=== PATIENT | female | born 1970 | race Caucasian/White ===

== ENCOUNTER → 2016-07-16 | Outpatient (CLI) | payer OTHER ==
--- NOTE | 2016-07-17 09:39 | MM ---
Reason for exam: screening (asymptomatic). Last mammogram was performed 1 year and 6 months ago. History: Family history of breast cancer in mother. Benign US RT VAD breast biopsy of the right breast, June 18, 2011. 2 benign excisional biopsies of the left breast. Took hormonal contraceptives for 1 year. Physical Findings: A clinical breast exam by your physician is recommended on an annual basis and results should be correlated with mammographic findings. MG Screening Mammo w CAD Bilateral CC and MLO view(s) were taken. Prior study comparison: December 31, 2014, bilateral MG screening mammo w CAD. There are scattered fibroglandular densities. Previous mammotome biopsy within the right breast. Asymmetric breast tissue, right stable upper outer quadrant posterior depth. There is chronic nodularity in the right breast at clip and in the left breast. There is no discrete abnormality. ASSESSMENT: Benign, BI-RAD 2 RECOMMENDATION: Routine screening mammogram of both breasts in 1 year.
== END | disposition home or self-care (01) ==
LOC: RADMAMWWP 07:07
PROVIDERS: ATTEND Family Medicine
DX: Z12.31 Encounter for screening mammogram for malignant neoplasm of breast (principal)

== ENCOUNTER 2016-09-05 17:32 | Emergency (ER) | payer OTHER ==
[2016-09-05 18:01] VITALS: BP 146/94; PULSE 82; RESP 18; TEMP 97.9
--- NOTE | 2016-09-05 18:38 | XR ---
EXAMINATION TYPE: XR foot limited bilateral DATE OF EXAM: 09/05/2016 CLINICAL HISTORY: pain TECHNIQUE: Frontal, lateral images of the right foot are obtained. COMPARISON: None. FINDINGS: There is no acute fracture/dislocation evident. The joint spaces appear within normal small its. The overlying soft tissue appears unremarkable. IMPRESSION: There is no acute fracture or dislocation. ICD 10 NO FRACTURE, INITIAL EVALUATION EXAMINATION TYPE: XR foot limited bilateral DATE OF EXAM: 09/05/2016 CLINICAL HISTORY: pain TECHNIQUE: Frontal, lateral images of the left foot are obtained. COMPARISON: None. FINDINGS: There is no acute fracture/dislocation evident. The joint spaces appear within normal small its. The overlying soft tissue appears unremarkable.
--- NOTE | 2016-09-05 19:10 | ED ---
Extremity Problem HPI - General Chief complaint: Extremity Problem,Nontraumatic Stated complaint: RT FOOT PAIN Time Seen by Provider: 09/05/16 17:51 Source: patient, RN notes reviewed, old records reviewed Mode of arrival: ambulatory Limitations: physical limitation - History of Present Illness Initial comments: This is a 45 year old female with right foot pain after stepping on a bus step and feeling her muscles in her foot tear for one week. PAtient reports she has heel spurs. She saw her PCP for this foot pain, he prescribed steroids but she does not want to take them because her blood sugar becomes elevated. PAtient states she has full sensation and range of motion. Patient states that she can bear weight on her foot, it is painful in her instep. - Related Data Home Medications Medication Instructions Recorded Confirmed Aspirin EC [Ecotrin Low Dose] 81 mg PO DAILY 12/22/15 09/05/16 Atenolol [Tenormin] 50 mg PO DAILY 09/05/16 09/05/16 Benazepril HCl [Lotensin] 40 mg PO DAILY 09/05/16 09/05/16 Furosemide [Lasix] 40 mg PO DAILY 09/05/16 09/05/16 Insulin Aspart Protam & Aspart 60 unit SQ HS 09/05/16 09/05/16 [NovoLOG MIX 70-30 Flexpen] Insulin Aspart Protam & Aspart 100 unit SQ QAM 09/05/16 09/05/16 [NovoLOG MIX 70-30 Flexpen] Previous Rx's Medication Instructions Recorded Ibuprofen [Motrin] 600 mg PO Q8HR PRN #20 tab 09/05/16 Allergies Allergy/AdvReac Type Severity Reaction Status Date / Time Penicillins AdvReac Nausea & Verified 09/05/16 18:15 Vomiting Review of Systems ROS Statement: Those systems with pertinent positive or pertinent negative responses have been documented in the HPI. ROS Other: All systems not noted in ROS Statement are negative. Past Medical History Past Medical History: Diabetes Mellitus, Hypertension History of Any Multi-Drug Resistant Organisms: None Reported Past Surgical History: Section Additional Past Surgical History / Comment(s): vascular surgery on right leg two years ago. Past Psychological History: No Psychological Hx Reported Smoking Status: Never smoker Past Alcohol Use History: None Reported Past Drug Use History: None Reported General Exam - General Exam Comments Initial Comments: WEll appearing 45 year old female, no distress. Limitations: physical limitation General appearance: alert, in no apparent distress Head exam: Present: atraumatic, normocephalic, normal inspection Eye exam: Present: normal appearance, PERRL, EOMI. Absent: scleral icterus, conjunctival injection, periorbital swelling ENT exam: Present: normal exam, mucous membranes moist Neck exam: Present: normal inspection. Absent: tenderness, meningismus, lymphadenopathy Respiratory exam: Present: normal lung sounds bilaterally. Absent: respiratory distress, wheezes, rales, rhonchi, stridor Cardiovascular Exam: Present: regular rate, normal rhythm, normal heart sounds. Absent: systolic murmur, diastolic murmur, rubs, gallop, clicks GI/Abdominal exam: Present: soft, normal bowel sounds. Absent: distended, tenderness, guarding, rebound, rigid Extremities exam: Present: normal inspection, full ROM, normal capillary refill , other (tenderness over right foot instep. Full range of motion in toes and ankle. ). Absent: tenderness, pedal edema, joint swelling, calf tenderness Back exam: Present: normal inspection Neurological exam: Present: alert, oriented X3, CN II-XII intact Psychiatric exam: Present: normal affect, normal mood Skin exam: Present: warm, dry, intact, normal color. Absent: rash Course Vital Signs 09/05/16 17:53 Temperature 97.9 F Pulse Rate 82 Respiratory 18 Rate Blood Pressure 146/94 O2 Sat by Pulse 98 Oximetry Medical Decision Making - Medical Decision Making This is a 45 year old female with right foot pain after stepping on a bus step and feeling her muscles in her foot tear for one week. PAtient reports she has heel spurs. She saw her PCP for this foot pain, he prescribed steroids but she does not want to take them because her blood sugar becomes elevated. PAtient states she has full sensation and range of motion. Xray are negative. Given an ZACARIAS wrap and written for crutches. Discussed follow up with orthopedic. Patient understands treatment planand haylie comply. - Radiology Data Radiology results: report reviewed Xray negative for acute process. Disposition Clinical Impression: Right foot sprain Disposition: HOME SELF-CARE Condition: Good Instructions: Foot Sprain (ED) Additional Instructions: Patient advised to follow-up with orthopedic physician as well as her primary care doctor in numerical tool [employer]. Return to the emergency department if any alarming signs or symptoms occur. Weighs wear the Zacarias wrap. Take anti-inflammatory medications prescribed. Rest, ice, and elevate the extremity. Prescriptions: Ibuprofen [Motrin] 600 mg PO Q8HR PRN #20 tab PRN Reason: Pain Referrals: Jorge Patel MD [Primary Care Provider] - 1-2 days Jamie Allison MD [STAFF PHYSICIAN] - 1-2 days Time of Disposition: 19:08
== END 2016-09-05 19:17 | disposition home or self-care (01) ==
LOC: EC 17:32
DX: S93.601A Unspecified sprain of right foot, initial encounter (principal); E11.9 Type 2 diabetes mellitus without complications; I10 Essential (primary) hypertension; Z79.82 Long term (current) use of aspirin; Z79.4 Long term (current) use of insulin; Z79.899 Other long term (current) drug therapy; X58.XXXA Exposure to other specified factors, initial encounter
CPT/HCPCS: 99283

== ENCOUNTER → 2017-08-24 | Outpatient (CLI) | payer MEDICAID ==
[2017-08-24 14:41] LABS: HGB 12.2 gm/dL (11.4-16.0); Hypochromasia Marked; MCH 23.4 pg (25.0-35.0); MCHC 31.3 g/dL (31.0-37.0); MCV 74.7 fL (80.0-100.0); Mean Platelet Volume 6.6; Microcytosis Slight; Platelet Count 351 k/uL (150-450); RBC 5.22 m/uL (3.80-5.40); RDW 15.1 % (11.5-15.5); WBC 11.1 k/uL (3.8-10.6)
[2017-08-24 16:27] LABS: ALT 31 U/L (9-52); AST 19 U/L (14-36); Alkaline Phosphatase 98 U/L (38-126); Anion Gap 14 mmol/L; Blood Urea Nitrogen 24 mg/dL (7-17); Calcium 9.5 mg/dL (8.4-10.2); Carbon Dioxide 29 mmol/L (22-30); Chloride 101 mmol/L (98-107); Glucose 143 mg/dL (74-99); Potassium 4.7 mmol/L (3.5-5.1); Sodium 144 mmol/L (137-145); Total Bilirubin 0.4 mg/dL (0.2-1.3); Total Protein 7.2 g/dL (6.3-8.2)
[2017-08-24 16:41] LABS: T4, Free (Free Thyroxine) 1.19 ng/dL (0.78-2.19)
[2017-08-26 09:38] LABS: Vitamin D 25 Hydroxy 22.7 ng/mL (30.0-100.0)
== END ==
LOC: LABMAIN 12:48
PROVIDERS: ATTEND Internal Medicine
DX: E66.9 Obesity, unspecified (principal); R53.83 Other fatigue; E11.9 Type 2 diabetes mellitus without complications
CPT/HCPCS: 36415; 80053; 82306; 82607; 83036; 84439; 84443; 84481; 85027

== ENCOUNTER 2017-09-29 10:03 | Emergency (ER) | payer MEDICAID, OTHER ==
[2017-09-29 10:12] VITALS: RESP 18
--- NOTE | 2017-09-29 10:24 | ED ---
Back Pain HPI - General Chief Complaint: Back Pain/Injury Stated Complaint: Low back pain-[facility] Time Seen by Provider: 09/29/17 10:24 Source: patient Limitations: no limitations - History of Present Illness Initial Comments: Patient presents with low back pain. 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 Patient states she is pain across the entire low back, states improves with being still, worsened by twisting certain directions. Pain is an aching and stiffness. Patient denies fevers, chills, nausea, vomiting, previous back surgeries, numbness, weakness, difficulty urinating, bowel incontinence, saddle anesthesia. Patient states she's had a similar injury in the past that she states was a lumbar sprain. MD Complaint: back pain - Related Data Home Medications Medication Instructions Recorded Confirmed Aspirin EC [Ecotrin Low Dose] 81 mg PO DAILY 12/22/15 09/29/17 Atenolol [Tenormin] 50 mg PO DAILY 09/05/16 09/29/17 Furosemide [Lasix] 40 mg PO DAILY 09/05/16 09/29/17 Insulin Aspart Protam & Aspart 60 unit SQ HS 09/05/16 09/29/17 [NovoLOG MIX 70-30 Flexpen] Insulin Aspart Protam & Aspart 100 unit SQ QAM 09/05/16 09/29/17 [NovoLOG MIX 70-30 Flexpen] Previous Rx's Medication Instructions Recorded Ibuprofen [Motrin] 600 mg PO Q8HR PRN #20 tab 09/05/16 Ibuprofen [Motrin] 600 mg PO Q6HR PRN #30 tab 09/29/17 predniSONE 40 mg PO DAILY 5 Days #10 tab 09/29/17 Allergies Allergy/AdvReac Type Severity Reaction Status Date / Time Penicillins AdvReac Nausea & Verified 09/29/17 10:12 Vomiting Review of Systems ROS Statement: Those systems with pertinent positive or pertinent negative responses have been documented in the HPI. ROS Other: All systems not noted in ROS Statement are negative. Constitutional: Denies: fever, chills, weakness, weight change, night sweats Eyes: Denies: vision change ENT: Denies: congestion Respiratory: Denies: dyspnea Cardiovascular: Denies: chest pain Endocrine: Denies: fatigue Gastrointestinal: Denies: nausea, vomiting, diarrhea, constipation Genitourinary: Denies: urgency, dysuria, frequency, hematuria Musculoskeletal: Reports: back pain. Denies: joint swelling, arthralgia, myalgia Skin: Denies: rash Neurological: Denies: weakness, numbness, paresthesias Past Medical History Past Medical History: Diabetes Mellitus, Hypertension History of Any Multi-Drug Resistant Organisms: None Reported Past Surgical History: Section Additional Past Surgical History / Comment(s): vascular surgery on right leg two years ago. Past Psychological History: No Psychological Hx Reported Smoking Status: Never smoker Past Alcohol Use History: None Reported Past Drug Use History: None Reported General Exam - General Exam Comments Initial Comments: Sitting up in chair. No acute distress at rest. Conversing normally. Calm, pleasant. Limitations: no limitations General appearance: alert, in no apparent distress Head exam: Present: atraumatic, normocephalic Eye exam: Present: normal appearance, PERRL, EOMI ENT exam: Present: normal exam, mucous membranes moist Neck exam: Present: normal inspection. Absent: tenderness Respiratory exam: Present: normal lung sounds bilaterally. Absent: respiratory distress, wheezes, rales Cardiovascular Exam: Present: regular rate, normal rhythm GI/Abdominal exam: Present: soft. Absent: distended, tenderness Extremities exam: Present: normal inspection, full ROM, normal capillary refill , other. Absent: tenderness, joint swelling Back exam: Present: tenderness, paraspinal tenderness, other (Tenderness palpation bilateral sacroiliac joints, as well as bilateral lumbar paravertebral muscles. Pain with range of motion of the lumbar spine. No midline tenderness. Straight leg raise negative bilaterally. Patient able to stand up and walk, transfer from chair to bed without difficulty. Ambulatory in the ER without difficulty.). Absent: muscle spasm, vertebral tenderness Neurological exam: Present: alert, oriented X3, other (Lower extremities neurovascularly intact.) Psychiatric exam: Present: normal affect, normal mood Skin exam: Present: warm, dry, intact, normal color. Absent: cyanosis Course Vital Signs 09/29/17 10:08 Temperature 98.0 F Pulse Rate 83 Respiratory 18 Rate Blood Pressure 166/96 O2 Sat by Pulse 95 Oximetry Medical Decision Making - Medical Decision Making No signs of cauda equina per exam or history. Patient afebrile. No obvious fractures or other bony abnormalities on lumbar x-ray. Patient to follow up with primary care physician. Discuss possible physical therapy, possible MRI if symptoms persist, possible referral to spinal surgeon. Patient to discuss with her primary care physician. Return to ER if new or worsening symptoms. Prescription steroids given. Return to ER for new or worsening symptoms. Patient understands and agrees. Disposition Clinical Impression: Low back pain Disposition: HOME SELF-CARE Condition: Good Instructions: Acute Low Back Pain (ED) Additional Instructions: Follow-up with your primary care physician, discuss physical therapy and MRI of lumbar spine. Return to ER if new or worsening symptoms. Prescriptions: Ibuprofen [Motrin] 600 mg PO Q6HR PRN #30 tab PRN Reason: Pain predniSONE 40 mg PO DAILY 5 Days #10 tab Is patient prescribed a controlled substance at d/c from ED?: No Referrals: Joshua Dexter MD [Primary Care Provider] - 1-2 days
--- NOTE | 2017-09-29 11:19 | XR ---
EXAMINATION TYPE: XR lumbar spine 2 or 3V DATE OF EXAM: 09/29/2017 COMPARISON: 12/23/2015 HISTORY: 46-year-old female with pain after lifting injury TECHNIQUE: 3 views FINDINGS: 5 lumbar type vertebral bodies. Facet arthropathy lower lumbar spine. Very mild endplate spondylosis is noted in the lumbar spine. Vertebral body heights are preserved and alignment are maintained. Disc spaces are also relatively maintained. IMPRESSION: Facet arthropathy lower lumbar spine. Very mild scattered endplate spondylosis. Disc spaces are relat ively maintained. No vertebral compression collapse or malalignment.
[2017-09-29 12:11] VITALS: BP 155/86; PULSE 81; TEMP 97.8
== END 2017-09-29 12:10 | disposition home or self-care (01) ==
LOC: EC 10:03
DX: M54.5 Low back pain (principal); E11.9 Type 2 diabetes mellitus without complications; I10 Essential (primary) hypertension; Z79.4 Long term (current) use of insulin; Z79.82 Long term (current) use of aspirin; Z79.899 Other long term (current) drug therapy; Z88.0 Allergy status to penicillin; X58.XXXA Exposure to other specified factors, initial encounter; Y93.F9 Activity, other caregiving; Y99.0 Civilian activity done for income or pay
CPT/HCPCS: 72100; 99283

== ENCOUNTER → 2018-07-12 | Outpatient (CLI) | payer MEDICAID ==
[2018-07-12 17:01] LABS: T4, Free (Free Thyroxine) 1.7 ng/dL (0.80-1.80)
== END ==
LOC: LABWHC1 09:18
PROVIDERS: ATTEND Internal Medicine
DX: E03.9 Hypothyroidism, unspecified (principal); E11.9 Type 2 diabetes mellitus without complications
CPT/HCPCS: 36415; 82947; 83036; 84439; 84443; 84481

== ENCOUNTER → 2018-07-12 | Outpatient (CLI) | payer MEDICAID ==
--- NOTE | 2018-07-14 10:22 | MM ---
Reason for exam: screening (asymptomatic). Last mammogram was performed 2 years ago. History: Patient history of other cancer. Family history of breast cancer in mother at age 70. Benign US RT VAD breast biopsy of the right breast, June 18, 2011. 2 benign excisional biopsies of the left breast. Took hormonal contraceptives for 1 year. Physical Findings: A clinical breast exam by your physician is recommended on an annual basis and results should be correlated with mammographic findings. MG 3D Screening Mammo W/Cad Bilateral CC, MLO, and XCCL view(s) were taken. Prior study comparison: July 16, 2016, bilateral MG screening mammo w CAD. December 31, 2014, bilateral MG screening mammo w CAD. There are scattered fibroglandular densities. No significant changes when compared with prior studies. ASSESSMENT: Benign, BI-RAD 2 RECOMMENDATION: Routine screening mammogram of both breasts in 1 year.
== END ==
LOC: RADMAMWWP 11:41
PROVIDERS: ATTEND Internal Medicine Geriatric Medicine
DX: Z12.31 Encounter for screening mammogram for malignant neoplasm of breast (principal)
CPT/HCPCS: 77063; 77067

== ENCOUNTER → 2018-07-16 | Outpatient (CLI) | payer MEDICAID ==
--- NOTE | 2018-07-16 08:33 | US ---
EXAMINATION TYPE: US thyroid st tissue head/neck DATE OF EXAM: 07/16/2018 COMPARISON: US 06/18/2011, NM 08/14/2011 CLINICAL HISTORY: R22.0 Thyroid Swelling. GLAND SIZE: Right Lobe: 7.9 x 2.6 x 3.1 cm Overall Parenchyma: heterogenous Left Lobe: 6.2 x 2.3 x 2.4 cm Overall Parenchyma: heterogeneous Isthmus Thickness: 1.7 cm NODULES RIGHT: # of nodules measured on right: 3 1. 2.8 X 1.4 x 2.4 cm hypoechoic solid nodule at the upper pole with well-defined margins; . This nodule is wider than tall and shows intranodular vascularity. Prior size: No previous 2. 3.4 X 2.2 x 3.3 cm isoechoic solid nodule at the upper pole with well-defined margins; . This no dule is wider than tall and shows intranodular vascularity. Prior size:No previous 3. 2.0 X 1.2 x 1.3 cm isoechoic solid nodule which appears inferior to the thyroid with well-defin ed margins; . This nodule is wider than tall and shows intranodular vascularity. Prior size:No previous LEFT: # of nodules measured on left: 2 1. 2.9 X 2.3 x 2.6 cm hypoechoic solid nodule at the lower pole with well-defined margins; . This nodule is wider than tall and shows intranodular vascularity. Prior size: No previous 2. 1.4 X 1.3 x 1.5 cm isoechoic solid nodule at the mid pole with well-defined margins; . This nodu le is wider than tall and shows intranodular vascularity. Prior size: No previous ISTHMUS: # of nodules measured in the isthmus: 0 Bilateral neck scanned, no evidence of lymphadenopathy. Bilateral enlarged, multinodular heterogeneous thyroid glands. IMPRESSION: Findings of a multinodular goiter. Discrete interval thyroid nodules are now seen in comparison to e prior of 2011. On the right there is a hypoechoic hypervascular 2.8 cm nodule and 3.4 cm mid pole h ypervascular nodule. Fine-needle aspiration could be considered or nuclear medicine thyroid scan to e valuate for cold nodule.
== END | disposition home or self-care (01) ==
LOC: RADUSWWP 06:44
PROVIDERS: ATTEND Internal Medicine
DX: E04.2 Nontoxic multinodular goiter (principal)
CPT/HCPCS: 76536

== ENCOUNTER → 2018-07-19 | Outpatient (CLI) | payer MEDICAID ==
[2018-07-19 16:44] LABS: T4, Free (Free Thyroxine) 1.6 ng/dL (0.80-1.80)
== END | disposition home or self-care (01) ==
LOC: LABWHC1 09:37
PROVIDERS: ATTEND Internal Medicine Endocrinology, Diabetes & Metabolism
DX: E11.65 Type 2 diabetes mellitus with hyperglycemia (principal)
CPT/HCPCS: 36415; 84439; 84443; 84445; 84480

== ENCOUNTER → 2018-08-13 | Outpatient (CLI) | payer MEDICAID ==
--- NOTE | 2018-08-14 22:05 | NM ---
EXAMINATION TYPE: NM thyroid image w uptake DATE OF EXAM: 08/14/2018 COMPARISON: Prior nuclear medicine thyroid scan July 20, 2011. Prior thyroid ultrasound July 16 HISTORY: Nontoxic multinodular goiter TECHNIQUE: Thyroid iodine uptake is calculated and images performed after the oral administration of 321 uCi 1-123 Capsule. FINDINGS: There is persistent heterogeneous distribution of activity throughout the gland similar to 2012 study. There is diminished uptake lower pole of both thyroid lobes which may correspond to large r nodule seen on ultrasound. There are persistent hot nodules right thyroid upper pole level and warm nodule left thyroid upper pole level. The 4 hour iodine uptake is calculated at 10% (normal range 8- 14%). The 24-hour iodine uptake is calculated at 20% (normal range 15-35%). IMPRESSION: Abnormal study without significant change from prior. Overall normal uptake remains prese nt. Cold nodules noted lower pole level bilaterally.
== END ==
LOC: RADNMMAIN 08:05
PROVIDERS: ATTEND Internal Medicine Endocrinology, Diabetes & Metabolism
DX: E04.2 Nontoxic multinodular goiter (principal)
CPT/HCPCS: 78014; A9516

== ENCOUNTER → 2018-10-13 | Outpatient (CLI) | payer MEDICAID ==
[2018-10-13 09:17] LABS: African American GFR (CKD) >90 (>60 ml/min/1.73 sqM); Blood Urea Nitrogen 18 mg/dL (7-17); Potassium 4.3 mmol/L (3.5-5.1)
== END | disposition home or self-care (01) ==
LOC: LABPAT 07:58
PROVIDERS: ATTEND Surgery
DX: Z01.810 Encounter for preprocedural cardiovascular examination (principal); Z01.812 Encounter for preprocedural laboratory examination; I10 Essential (primary) hypertension; E04.2 Nontoxic multinodular goiter
CPT/HCPCS: 36415; 82565; 84132; 84520; 93005

== ENCOUNTER 2018-10-16 07:13 | Day surgery (SDC) | payer MEDICAID ==
[~2018-10-16 07:13] MED LIST: HEPARIN SODIUM,PORCINE 5,000 UNIT/ML 1 ML VIAL SQ ONE; HYDROmorphone 0.5 MG/0.5 ML SYRINGE IVP PRN; LIDOCAINE 1% 20 ML VIAL (10MG/ML) FOR IV START INTRADERMA PRN; ONDANSETRON 4 MG/2 ML VIAL IVP ONE; ONDANSETRON 4 MG/2 ML VIAL IVP PRN; Pre Op ABX Message 1 EACH MISC MISCELLANE ONE; SCOPOLAMINE 1.5MG/72HR PATCH TRANSDERM ONE
[2018-10-16] MEDS ORDERED: ceFAZolin IN SWFI 2 GM/20 ML SYRINGE IVP ONE (08:21)
[2018-10-16] MEDS ORDERED: ceFAZolin 3 GM in SODIUM CHLORIDE 0.9% 100 ML IVPB ONE (08:30)
[2018-10-16] MEDS: LACTATED RINGERS 1,000 ML IV SCH (08:32)
[2018-10-16 08:36] LABS: Glucose,Whole Blood 187 mg/dL (75-99)
--- NOTE | 2018-10-16 08:48 | P.GSHP ---
History of Present Illness H&P Date: 10/16/18 Chief Complaint: Thyroid nodules This a 47-year-old female who has complaints of pressure in her neck. Patient underwent ultrasound found to have multiple enlarged thyroid nodules. Patient presents today for total thyroidectomy for multinodular goiter. Patient is aware the risks surgery including hypocalcemia, parathyroid gland injury, vocal hoarseness/paresis, recurrent laryngeal nerve injury, hematoma. Past Medical History Past Medical History: Diabetes Mellitus, Hypertension, Thyroid Disorder Additional Past Medical History / Comment(s): NODULES ON THYROID, PRESSING ON THROAT. VARICOSE VEINS. EDEMA ANKLES. History of Any Multi-Drug Resistant Organisms: None Reported Past Surgical History: Breast Surgery, Section Additional Past Surgical History / Comment(s): Vascular Laser Surgery on Rt leg. John wrist ganglion cysts. Breast bx. Past Anesthesia/Blood Transfusion Reactions: No Reported Reaction Smoking Status: Former smoker - Past Family History Mother Family Medical History: Cancer, Deep Vein Thrombosis (DVT) Additional Family Medical History / Comment(s): BREAST CA Brother(s) Family Medical History: Cancer, Deep Vein Thrombosis (DVT) Additional Family Medical History / Comment(s): CA TUMOR OFF PITUITARY GLAND Medications and Allergies Home Medications Medication Instructions Recorded Confirmed Type Aspirin EC [Ecotrin Low Dose] 81 mg PO DAILY 12/22/15 10/08/18 History Atenolol [Tenormin] 50 mg PO DAILY 09/05/16 10/16/18 History Furosemide [Lasix] 40 mg PO DAILY 09/05/16 10/16/18 History Benazepril HCl [Lotensin] 40 mg PO DAILY 10/08/18 10/16/18 History Insulin NPL/Insulin Lispro 105 unit SQ [id number] 10/08/18 10/16/18 History [humaLOG MIX 75-25 VIAL] Insulin NPL/Insulin Lispro 105 unit SQ HS 10/08/18 10/16/18 History [humaLOG MIX 75-25 VIAL] Potassium Chloride ER [K-Dur 10] 10 meq PO DAILY 10/08/18 10/16/18 History metFORMIN HCL [Glucophage] 500 mg PO BID 10/08/18 10/16/18 History Allergies Allergy/AdvReac Type Severity Reaction Status Date / Time Penicillins AdvReac Nausea & Verified 10/08/18 11:55 Vomiting Surgical - Exam Vital Signs Temp Pulse Resp BP Pulse Ox 98.4 F 87 18 184/88 97 10/16/18 08:33 10/16/18 08:33 10/16/18 08:33 10/16/18 08:33 10/16/18 08:33 - General well developed, well nourished, no distress - Eyes PERRL - ENT normal pinna, normal nares, normal mucosa - Neck Prominent thyroid - Respiratory normal expansion - Cardiovascular Rhythm: regular - Abdomen Abdomen: soft, non tender Results - Labs Abnormal Lab Results - Last 24 Hours (Table) 10/16/18 Range/Units 08:24 POC Glucose (mg/dL) 187 H (75-99) mg/dL Assessment and Plan Assessment: Multinodular goiter with a large thyroid nodule. We'll perform total thyroidectomy.
[2018-10-16] MEDS ORDERED: MIDAZOLAM (PF) 2 MG/2 ML VIAL IVP ONE (08:58)
[2018-10-16] MEDS ORDERED: MIDAZOLAM 2 MG/2 ML VIAL ONE (09:01)
[2018-10-16] MEDS ORDERED: PROPOFOL 10 MG/ML 20 ML VIAL IV ONE (09:01)
[2018-10-16] MEDS ORDERED: fentaNYL (PF) 50 MCG/ML 2 ML AMP ONE (09:01)
[2018-10-16] MEDS ORDERED: DEXTROSE 50% SYRINGE 50 ML IVP ONE (09:01)
[2018-10-16] MEDS ORDERED: SUCCINYLCHOLINE CHLORIDE VIAL 200 MG/10 ML VIAL IV ONE (09:01)
[2018-10-16] MEDS ORDERED: LIDOCAINE 1% INJ 10MG/ML (20 ML MDV) ONE (09:01)
[2018-10-16] MEDS ORDERED: PHENYLEPHRINE-0.9% NACL SYG 1 MG/10 ML SYRINGE ONE (09:01)
[2018-10-16] MEDS ORDERED: HYDROmorphone (PF) 1 MG/ML ONE (09:01)
[2018-10-16] MEDS ORDERED: LACTATED RINGERS 1,000 ML IV ONE ×3 (10:12→11:56)
[2018-10-16 10:50] LABS: Glucose,Whole Blood 87 mg/dL (75-99)
[2018-10-16 11:21] LABS: Glucose,Whole Blood 119 mg/dL (75-99)
[2018-10-16] MEDS ORDERED: HYDROmorphone 0.5 MG/0.5 ML SYRINGE IVP PRN (11:56)
[2018-10-16] MEDS ORDERED: ONDANSETRON 4 MG/2 ML VIAL IVP PRN (11:56)
[2018-10-16] MEDS ORDERED: HYDROcodone/APAP 5-325MG 1 EACH TAB PO PRN (11:56)
[2018-10-16] MEDS ORDERED: NALOXONE 0.4 MG/ML 1 ML VIAL IV PRN (11:56)
[2018-10-16] MEDS ORDERED: ONDANSETRON 4 MG/2 ML VIAL IVP ONE (12:10)
--- NOTE | 2018-10-16 12:10 | P.OP ---
Date of Procedure: 10/16/18 Preoperative Diagnosis: Multinodular goiter Postoperative Diagnosis: Multinodular goiter Enlarged left cervical lymph node Procedure(s) Performed: Total thyroidectomy Lymph node excision Anesthesia: KIAN Surgeon: Ruddy Bolaños Estimated Blood Loss (ml): 50 Pathology: other (Thyroid, lymph node) Condition: stable Disposition: PACU Description of Procedure: Patient's placed on the operative table in the supine position. She received general anesthesia. She was then placed in the beachchair position. Her neck was extended. Her neck and chest were prepped and draped in usual sterile fashion. A standard Lni incision was made on the neck. Using left cautery the subcutaneous fat and platysma was divided. The strap muscles were divided in the midline. The scalp retractors placed a wound and then the thyroid gland was exposed. Using some blunt dissection the thyroid gland was further exposed. The left thyroid gland was quite large. The right gland was slightly smaller than the left with both glands were enlarged with multiple nodules. This point the left limb was dissected first. The thyroid dissection started inferiorly at the inferior pole. Using a right angle dissector the inferior thyroid vessels were suture-ligated with 2-0 silk suture. The vessels were divided and then the gland was rotated medially. Using the Harmonic scissors several small veins were divided. The superior thyroid vessels were then dissected. Using the right angle grasper the superior thyroid vessels were suture-ligated with 2-0 silk ties. And then the thyroid gland was further rotated medially. Using meticulous dissection the thyroid gland was further dissected using the Harmonic scissors and care was taken to identify and preserve the recurrent laryngeal nerve in the tracheoesophageal groove. The patient appeared to have an enlarged lymph node attached to the left thyroid gland this was removed with the left thyroid gland. The middle thyroid vessels were ligated with 2-0 silk ties. And then using the Harmonic scissors the thyroid gland was removed from the trachea. After this was done the right thyroid gland was dissected the summer fashion. The inferior pole vessels were ligated with 2-0 silk ties. The gland was then rotated medially and then using Harmonic scissors the thyroid was dissected along its capsule. The superior thyroid vessels were ligated with 2-0 silk ties and then the thyroid gland was rotated medially. Using meticulous dissection the recurrent laryngeal nerve was visualized and then the middle thyroid vessels were ligated with 2-0 silk ties. The thyroid was then removed from the trachea using the Harmonic scissors. The specimen was sent to pathology. The left upper pole thyroid was tagged with a silk suture. The wounds refuses. There is no bleeding seen. The wound was irrigated. The thyroid gland was inspected there is no evidence of any parathyroid gland on the thyroid. The left upper and left lower and right lower parathyroid glands were visualized during the dissection. A MERY drain was placed and brought through separate stab incision the strap muscles were reapproximated midline using 2-0 Vicryl suture. The platysmas platysma was was closed using 3-0 Vicryl suture. Skin was closed interrupted 3-0 Monocryl suture. Dermabond was applied. Patient top procedure well and was sent to recovery room stable condition.
[2018-10-16 12:18] LABS: Glucose,Whole Blood 115 mg/dL (75-99)
[2018-10-16] MEDS ORDERED: diphenhydrAMINE 50 MG/ML 1 ML VIAL IVP ONE (12:20)
[2018-10-16] MEDS ORDERED: SODIUM CHLORIDE 0.9% 1,000 ML IV ONE (12:39)
[2018-10-16] MEDS ORDERED: hydrALAZINE HCL 20 MG/ML 1 ML VIAL IVP ONE (12:56)
[2018-10-16] MEDS ORDERED: SCOPOLAMINE 1.5MG/72HR PATCH TRANSDERM ONE (13:35)
[2018-10-16] MEDS ORDERED: PROMETHAZINE INJ 25 MG/ML 1 ML VIAL IVPB ONE (13:35)
[2018-10-16 17:00] LABS: Glucose,Whole Blood 139 mg/dL (75-99)
[2018-10-16] MEDS: KETOROLAC 30 MG/ML 1 ML VIAL IVP SCH ×4 (17:06→19:56)
[2018-10-16] MEDS: ACETAMINOPHEN TAB 325 MG TAB PO PRN (17:20)
[2018-10-16 17:25] VITALS: BMI 47.7
[2018-10-16] MEDS: FAMOTIDINE 20 MG TAB PO SCH (19:56)
[2018-10-16 20:31] LABS: Glucose,Whole Blood 250 mg/dL (75-99)
[2018-10-16] MEDS ORDERED: INSULN ASP PRT/INSULIN ASPART 100 UNIT/ML 10 ML VIAL SQ SCH (21:00)
[2018-10-17] MEDS: KETOROLAC 30 MG/ML 1 ML VIAL IVP SCH ×3 (00:09→14:40)
[2018-10-17] MEDS: ACETAMINOPHEN TAB 325 MG TAB PO PRN (03:23)
[2018-10-17 06:49] LABS: Glucose,Whole Blood 97 mg/dL (75-99)
[2018-10-17] MEDS ORDERED: INSULN ASP PRT/INSULIN ASPART 100 UNIT/ML 10 ML VIAL SQ SCH (07:30)
[2018-10-17 09:00] LABS: Glucose,Whole Blood 163 mg/dL (75-99)
[2018-10-17] MEDS ORDERED: ENOXAPARIN 40 MG/0.4 ML SYRINGE SQ SCH (09:00)
[2018-10-17] MEDS ORDERED: ASPIRIN 81 MG PO SCH (09:00)
[2018-10-17] MEDS ORDERED: ATENOLOL 50 MG TAB PO SCH (09:00)
[2018-10-17] MEDS: FAMOTIDINE 20 MG TAB PO SCH (09:11)
[2018-10-17] MEDS: LACTATED RINGERS 1,000 ML IV SCH (09:18)
[2018-10-17 11:00] LABS: Glucose,Whole Blood 175 mg/dL (75-99)
[2018-10-17 12:45] VITALS: BP 131/87; PULSE 74; RESP 16; TEMP 98.1
[2018-10-17 13:04] LABS: Glucose,Whole Blood 200 mg/dL (75-99)
--- NOTE | 2018-10-17 13:14 | P.PN ---
Subjective No overnight events, patient is status post total thyroidectomy serum calcium within normal limits. Blood sugars are well controlled. Patient still has a MERY drain post thyroidectomy. Constitutional: Denied any fatigue denied any fever. Cardio vascular: denied any chest pain, palpitations Gastrointestinal denied any nausea vomiting Pulmonary: Denied any shortness of breath cough Neurologic denied any new focal deficits All inpatient medications were reviewed and appropriate changes in these medications as dictated in the interval history and assessment and plan. Objective - Vital Signs Vital signs: Vital Signs Temp 98.1 F 10/17/18 12:44 Pulse 74 10/17/18 12:44 Resp 16 10/17/18 12:44 BP 131/87 10/17/18 12:44 Pulse Ox 95 10/17/18 12:44 Intake & Output 10/16/18 10/17/18 10/17/18 18:59 06:59 18:59 Intake Total 1750 495 Output Total 100 Balance 1650 495 Intake: IV 1750 Intake, IV Titration 495 Amount Sodium Chloride 0.9% 1, 495 000 ml @ 0 mls/hr IV .[employer] [facility] Rx#:[id number] Output: Estimated Blood Loss 100 Other: Voiding Method Toilet Toilet Toilet # Voids 2 - Exam PHYSICAL EXAMINATION: GENERAL: The patient is drowsy as she is just coming out of anesthesia, not in any acute distress. Obese HEENT: Pupils are round and equally reacting to light. EOMI. No scleral icterus. No conjunctival pallor. Normocephalic, atraumatic. No pharyngeal erythema. Thyroidectomy scar present, MERY drain in place CARDIOVASCULAR: S1 and S2 present. No murmurs, rubs, or gallops. PULMONARY: Chest is clear to auscultation, no wheezing or crackles. ABDOMEN: Soft, nontender, nondistended, normoactive bowel sounds. No palpable organomegaly. MUSCULOSKELETAL: No joint swelling or deformity. EXTREMITIES: No cyanosis, clubbing, or pedal edema. NEUROLOGICAL: Gross neurological examination did not reveal any focal deficits. SKIN: No rashes. - Labs Labs: Abnormal Lab Results - Last 24 Hours (Table) 10/16/18 10/16/18 10/16/18 Range/Units 15:34 16:58 19:04 POC Glucose (mg/dL) 139 H (75-99) mg/dL Calcium 8.2 L 8.1 L (8.4-10.2) mg/dL 10/16/18 10/16/18 10/17/18 Range/Units 20:25 23:35 07:33 POC Glucose (mg/dL) 250 H (75-99) mg/dL Calcium 7.8 L 7.8 L (8.4-10.2) mg/dL 10/17/18 10/17/18 10/17/18 Range/Units 08:47 10:59 13:02 POC Glucose (mg/dL) 163 H 175 H 200 H (75-99) mg/dL Calcium (8.4-10.2) mg/dL Assessment and Plan Plan: -Type 2 diabetes mellitus insulin management patient was resumed on her 70/30 blood sugars are well controlled -Hypertension: Monitor blood pressure hold MARIA FERNANDA inhibitor to prevent perioperative hypotension continue with atenolol -Total thyroidectomy postop management for thyroidectomy as per primary service, monitor calcium -Obesity patient may benefit from sleep study as an outpatient -DVT prophylaxis as per primary service
--- NOTE | 2018-10-17 13:59 | P.DS ---
Providers Expected date of discharge: 10/17/18 Attending physician: Ruddy Bolaños Consults: 10/16/18 11:56 Consult Physician Routine Consulting Provider: Humberto Rainey Consult Reason/Comments: Medical management Do you want consulting provider notified?: Yes Primary care physician: Isacc Lewis Hospital Course: 47-year-old female who underwent total thyroidectomy with Dr. Bolaños on 10/16/2018. Patient is doing well postoperatively without any immediate complications. patient's pain is tolerable. Vital signs are stable. She has been afebrile. Patient's voice normal without hoarseness. calcium 7.8 postoperatively. patient is deemed stable for discharge home today per Dr. Bolaños. Please see EMR for further hospital course details. Discharge Diagnosis 1. multinodular goiter, status post total thyroidectomy Nurse practitioner note has been reviewed by physician. Signing provider agrees with the documented findings, assessment, and plan of care. Plan - Discharge Summary Discharge Rx Participant: Yes New Discharge Prescriptions: New Hydrocodone/Acetaminophen [[place] 5-325] 1 tab PO Q4HR PRN 3 Days #18 tab PRN Reason: Pain Calcium Carb-Vit D 500Mg-200Un [Oscal 500+D] 1 each PO DAILY #30 tablet No Action Aspirin EC [Ecotrin Low Dose] 81 mg PO DAILY Furosemide [Lasix] 40 mg PO DAILY Atenolol [Tenormin] 50 mg PO DAILY Benazepril HCl [Lotensin] 40 mg PO DAILY Insulin NPL/Insulin Lispro [humaLOG MIX 75-25 VIAL] 105 unit SQ HS Insulin NPL/Insulin Lispro [humaLOG MIX 75-25 VIAL] 105 unit SQ AC-BRKFST metFORMIN HCL [Glucophage] 500 mg PO BID Potassium Chloride ER [K-Dur 10] 10 meq PO DAILY Discharge Medication List Aspirin EC [Ecotrin Low Dose] 81 mg PO DAILY 12/22/15 [History] Atenolol [Tenormin] 50 mg PO DAILY 09/05/16 [History] Furosemide [Lasix] 40 mg PO DAILY 09/05/16 [History] Benazepril HCl [Lotensin] 40 mg PO DAILY 10/08/18 [History] Insulin NPL/Insulin Lispro [humaLOG MIX 75-25 VIAL] 105 unit SQ AC-BRKFST 10/08/18 [History] Insulin NPL/Insulin Lispro [humaLOG MIX 75-25 VIAL] 105 unit SQ HS 10/08/18 [History] Potassium Chloride ER [K-Dur 10] 10 meq PO DAILY 10/08/18 [History] metFORMIN HCL [Glucophage] 500 mg PO BID 10/08/18 [History] Calcium Carb-Vit D 500Mg-200Un [Oscal 500+D] 1 each PO DAILY #30 tablet 10/17/18 [Rx] Hydrocodone/Acetaminophen [[place] 5-325] 1 tab PO Q4HR PRN 3 Days #18 tab 10/17/18 [Rx] Follow up Appointment(s)/Referral(s): Ruddy Bolaños MD [STAFF PHYSICIAN] - 1 Week Activity/Diet/Wound Care/Special Instructions: No driving while taking [place] No lifting over 10 pounds You may shower. No soaking or tub baths Very light activity until you are reevaluated at your follow up appointment with your surgeon Discharge Disposition: HOME SELF-CARE
== END 2018-10-17 16:26 | disposition home or self-care (01) ==
LOC: OR 07:13 → 3NMEDONC 11:56 → OR 10-17 16:26
PROVIDERS: ATTEND Surgery
DX: C73 Malignant neoplasm of thyroid gland (principal); E06.3 Autoimmune thyroiditis; R59.0 Localized enlarged lymph nodes; I10 Essential (primary) hypertension; R60.0 Localized edema; E11.9 Type 2 diabetes mellitus without complications; E66.9 Obesity, unspecified; Z68.42 Body mass index [BMI] 45.0-49.9, adult; Z87.891 Personal history of nicotine dependence; Z79.82 Long term (current) use of aspirin; Z79.4 Long term (current) use of insulin; Z79.899 Other long term (current) drug therapy; Z88.0 Allergy status to penicillin; Z80.3 Family history of malignant neoplasm of breast; Z80.8 Family history of malignant neoplasm of other organs or systems
CPT/HCPCS: 60240; 88307; 82310 ×2; 84703; J2250 ×2; J0330; J0360; J1200; J1644; J2550; J0690; J2405; J2001; J1650; J3010; J1885 ×2; J1170 ×2; J2370; J2704

== ENCOUNTER 2018-10-20 13:21 | Emergency (ER) | payer MEDICAID ==
[2018-10-20 13:29] VITALS: TEMP 97.6
[2018-10-20 14:16] LABS: Glucose,Whole Blood 243 mg/dL (75-99)
--- NOTE | 2018-10-20 14:36 | ED ---
General Adult HPI - General Chief complaint: Neuro Symptoms/Deficit Stated complaint: Post op issues, Recheck Time Seen by Provider: 10/20/18 13:47 Source: patient Mode of arrival: ambulatory Limitations: no limitations - History of Present Illness Initial comments: Patient is a 47-year-old female with past medical history of diabetes, hypertension, presenting to the emergency room with complaints of numbness in her lips and fingertips 1 day. Patient states she recently had a thyroidectomy on 10/16/2018, without complications. She states she noticed the lip numbness yesterday evening and has progressed as well as in the fingertips. Patient sta kati her surgeon told her if she has any fever, chills, and/or numbness to go to the ER. Patient states she is also had diarrhea since the surgery. Patient denies fever, chills, abdominal pain, chest pain, shortness of breath. Patient has follow-up with her surgeon on . No other complaints at this time. - Related Data Home Medications Medication Instructions Recorded Confirmed Aspirin EC [Ecotrin Low Dose] 81 mg PO DAILY 12/22/15 10/20/18 Atenolol [Tenormin] 50 mg PO DAILY 09/05/16 10/20/18 Furosemide [Lasix] 40 mg PO DAILY 09/05/16 10/20/18 Benazepril HCl [Lotensin] 40 mg PO DAILY 10/08/18 10/20/18 Insulin NPL/Insulin Lispro 105 unit SQ BID 10/08/18 10/20/18 [humaLOG MIX 75-25 VIAL] Potassium Chloride ER [K-Dur 10] 10 meq PO DAILY 10/08/18 10/20/18 metFORMIN HCL [Glucophage] 500 mg PO BID 10/08/18 10/20/18 Calcium Carb-Vit D 500Mg-200Un 1 tab PO DAILY 10/20/18 10/20/18 [Oscal 500+D] Previous Rx's Medication Instructions Recorded Hydrocodone/Acetaminophen [[place] 1 tab PO Q4HR PRN 3 Days #18 tab 10/17/18 5-325] Allergies Allergy/AdvReac Type Severity Reaction Status Date / Time Penicillins AdvReac Nausea & Verified 10/20/18 13:39 Vomiting Review of Systems ROS Statement: Those systems with pertinent positive or pertinent negative responses have been documented in the HPI. ROS Other: All systems not noted in ROS Statement are negative. Past Medical History Past Medical History: Diabetes Mellitus, Hypertension, Thyroid Disorder Additional Past Medical History / Comment(s): NODULES ON THYROID, PRESSING ON THROAT. VARICOSE VEINS. EDEMA ANKLES. History of Any Multi-Drug Resistant Organisms: None Reported Past Surgical History: Breast Surgery, Section Additional Past Surgical History / Comment(s): Vascular Laser Surgery on Rt leg. John wrist ganglion cysts. Breast bx., thyroidectomy Past Anesthesia/Blood Transfusion Reactions: No Reported Reaction Past Psychological History: No Psychological Hx Reported Smoking Status: Former smoker - Past Family History Mother Family Medical History: Cancer, Deep Vein Thrombosis (DVT) Additional Family Medical History / Comment(s): BREAST CA Brother(s) Family Medical History: Cancer, Deep Vein Thrombosis (DVT) Additional Family Medical History / Comment(s): CA TUMOR OFF PITUITARY GLAND General Exam - General Exam Comments Initial Comments: GENERAL: Well-appearing, well-nourished and in no acute distress. HEAD: Atraumatic, normocephalic. EYES: Pupils equal round and reactive to light, extraocular movements intact, sclera anicteric, conjunctiva are normal. ENT: TMs normal, nares patent, oropharynx clear without exudates. Moist mucous membranes. NECK: Normal range of motion, supple without lymphadenopathy or JVD. Healing incision noted, anterior aspect, without signs of infection. LUNGS: Breath sounds clear to auscultation bilaterally and equal. No wheezes rales or rhonchi. HEART: Regular rate and rhythm without murmurs, rubs or gallops. ABDOMEN: Soft, nontender, normoactive bowel sounds. No guarding, no rebound. No masses appreciated. : Deferred EXTREMITIES: Normal range of motion, no pitting or edema. No clubbing or cyanosis. Sensation equal, bilateral in upper and lower extremities. NEUROLOGICAL: Cranial nerves II through XII grossly intact. Normal speech, normal gait. PSYCH: Normal mood, normal affect. SKIN: Warm, Dry, normal turgor, no rashes or lesions noted. Limitations: no limitations Expanded Sensory exam: Upper Extremity Light Touch: Normal, Lower Extremity Light Touch: Normal Motor strength exam: RUE: 5, LUE: 5, RLE: 5, LLE: 5 Course Vital Signs 10/20/18 10/20/18 13:24 16:42 Temperature 97.6 F Pulse Rate 80 74 Respiratory 18 16 Rate Blood Pressure 147/93 130/91 O2 Sat by Pulse 94 L 96 Oximetry Medical Decision Making - Medical Decision Making Patient is a 47-year-old female with complaints of lip and fingertip numbness x 1 day. Patient had thyroidectomy 4 days ago without complications. Patient states she noticed the lip numbness began yesterday evening and has progressed through today. Patient is also complaining of diarrhea since the surgery. Patient is afebrile and denies any abdominal pain. CMP showed calcium level is 6.0. CBC and UA are within normal limits. Patient was given 1 g of calcium g luconate IV and patient's symptoms improved. Case was discussed with Dr. Elliott. Dr. Elliott discussed with Dr. Bolaños who recommended increasing her daily calcium supplement to 3 times a day and is okay to be discharged. Patient is in agreement with this plan. Patient will be discharged home and will follow up with surgeon on . Return parameters were discussed with the patient she verbalized understanding. - Lab Data Result diagrams: 10/20/18 14:16 10/20/18 14:16 Lab Results 10/20/18 10/20/18 10/20/18 Range/Units 14:15 14:16 14:16 WBC 9.9 (3.8-10.6) k/uL RBC 4.92 (3.80-5.40) m/uL Hgb 11.7 (11.4-16.0) gm/dL Hct 36.4 (34.0-46.0) % MCV 74.0 L (80.0-100.0) fL MCH 23.9 L (25.0-35.0) pg MCHC 32.3 (31.0-37.0) g/dL RDW 14.6 (11.5-15.5) % Plt Count 323 (150-450) k/uL Neutrophils % 81 % Lymphocytes % 11 % Monocytes % 5 % Eosinophils % 2 % Basophils % 0 % Neutrophils # 8.0 H (1.3-7.7) k/uL Lymphocytes # 1.0 (1.0-4.8) k/uL Monocytes # 0.5 (0-1.0) k/uL Eosinophils # 0.2 (0-0.7) k/uL Basophils # 0.0 (0-0.2) k/uL Hypochromasia Slight Microcytosis Slight Sodium 140 (137-145) mmol/L Potassium 4.3 (3.5-5.1) mmol/L Chloride 99 (98-107) mmol/L Carbon Dioxide 30 (22-30) mmol/L Anion Gap 11 mmol/L BUN 12 (7-17) mg/dL Creatinine 0.60 (0.52-1.04) mg/dL Est GFR (CKD-EPI)AfAm >90 (>60 ml/min/1.73 sqM) Est GFR (CKD-EPI)NonAf >90 (>60 ml/min/1.73 sqM) Glucose 259 H (74-99) mg/dL POC Glucose (mg/dL) 243 H (75-99) mg/dL POC Glu Cribber ID [place] Calcium 6.0 L* (8.4-10.2) mg/dL Total Bilirubin 0.5 (0.2-1.3) mg/dL AST 17 (14-36) U/L ALT 21 (9-52) U/L Alkaline Phosphatase 104 (38-126) U/L Total Protein 6.6 (6.3-8.2) g/dL Albumin 3.6 (3.5-5.0) g/dL Urine Color Urine Appearance (Clear) Urine pH (5.0-8.0) Ur Specific [place] (1.001-1.035) Urine Protein (Negative) Urine Glucose (UA) (Negative) Urine Ketones (Negative) Urine Blood (Negative) Urine Nitrite (Negative) Urine Bilirubin (Negative) Urine Urobilinogen (<2.0) mg/dL Ur Leukocyte Esterase (Negative) Urine RBC (0-5) /hpf Urine WBC (0-5) /hpf Ur Squamous Epith Cells (0-4) /hpf Urine Bacteria (None) /hpf Hyaline Casts (0-2) /lpf Urine Mucus (None) /hpf 10/20/18 Range/Units 14:16 WBC (3.8-10.6) k/uL RBC (3.80-5.40) m/uL Hgb (11.4-16.0) gm/dL Hct (34.0-46.0) % MCV (80.0-100.0) fL MCH (25.0-35.0) pg MCHC (31.0-37.0) g/dL RDW (11.5-15.5) % Plt Count (150-450) k/uL Neutrophils % % Lymphocytes % % Monocytes % % Eosinophils % % Basophils % % Neutrophils # (1.3-7.7) k/uL Lymphocytes # (1.0-4.8) k/uL Monocytes # (0-1.0) k/uL Eosinophils # (0-0.7) k/uL Basophils # (0-0.2) k/uL Hypochromasia Microcytosis Sodium (137-145) mmol/L Potassium (3.5-5.1) mmol/L Chloride (98-107) mmol/L Carbon Dioxide (22-30) mmol/L Anion Gap mmol/L BUN (7-17) mg/dL Creatinine (0.52-1.04) mg/dL Est GFR (CKD-EPI)AfAm (>60 ml/min/1.73 sqM) Est GFR (CKD-EPI)NonAf (>60 ml/min/1.73 sqM) Glucose (74-99) mg/dL POC Glucose (mg/dL) (75-99) mg/dL POC Glu Cribber ID Calcium (8.4-10.2) mg/dL Total Bilirubin (0.2-1.3) mg/dL AST (14-36) U/L ALT (9-52) U/L Alkaline Phosphatase (38-126) U/L Total Protein (6.3-8.2) g/dL Albumin (3.5-5.0) g/dL Urine Color Yellow Urine Appearance Clear (Clear) Urine pH 5.5 (5.0-8.0) Ur Specific [place] 1.015 (1.001-1.035) Urine Protein Negative (Negative) Urine Glucose (UA) Negative (Negative) Urine Ketones Negative (Negative) Urine Blood Trace H (Negative) Urine Nitrite Negative (Negative) Urine Bilirubin Negative (Negative) Urine Urobilinogen <2.0 (<2.0) mg/dL Ur Leukocyte Esterase Negative (Negative) Urine RBC 1 (0-5) /hpf Urine WBC 1 (0-5) /hpf Ur Squamous Epith Cells 2 (0-4) /hpf Urine Bacteria Occasional H (None) /hpf Hyaline Casts 1 (0-2) /lpf Urine Mucus Rare H (None) /hpf Disposition Clinical Impression: Hypocalcemia Disposition: HOME SELF-CARE Condition: Stable Instructions (If sedation given, give patient instructions): Hypocalcemia (ED) Additional Instructions: Please return to the Emergency Department if symptoms worsen or any other concerns. Increase calcium supplement to 3 times a day. Follow-up with surgeon on as discussed. Is patient prescribed a controlled substance at d/c from ED?: No Referrals: Joshua Dexter MD [Primary Care Provider] - 1-2 days
[2018-10-20 14:40] LABS: ALT 21 U/L (9-52); AST 17 U/L (14-36); African American GFR (CKD) >90 (>60 ml/min/1.73 sqM); Albumin 3.6 g/dL (3.5-5.0); Alkaline Phosphatase 104 U/L (38-126); Anion Gap 11 mmol/L; Basophils % (A) 0 %; Blood Urea Nitrogen 12 mg/dL (7-17); Carbon Dioxide 30 mmol/L (22-30); Chloride 99 mmol/L (98-107); Eosinophils # (A) 0.2 k/uL (0-0.7); Eosinophils % (A) 2 %; Glucose 259 mg/dL (74-99); HCT 36.4 % (34.0-46.0); HGB 11.7 gm/dL (11.4-16.0); Hypochromasia Slight; Lymphocytes % (A) 11 %; MCH 23.9 pg (25.0-35.0); MCHC 32.3 g/dL (31.0-37.0); Microcytosis Slight; Monocytes # (A) 0.5 k/uL (0-1.0); Monocytes % (A) 5 %; Neutrophils % (A) 81 %; Platelet Count 323 k/uL (150-450); Potassium 4.3 mmol/L (3.5-5.1); RBC 4.92 m/uL (3.80-5.40); RDW 14.6 % (11.5-15.5); Sodium 140 mmol/L (137-145); Total Bilirubin 0.5 mg/dL (0.2-1.3); Total Protein 6.6 g/dL (6.3-8.2); WBC 9.9 k/uL (3.8-10.6)
[2018-10-20 14:43] LABS: Appearance,Urine Clear (Clear); Bacteria,Urine Occasional /hpf; Bilirubin,Urine Negative (Negative); Blood,Urine Trace (Negative); Color,Urine Yellow; Glucose,Urine (UA) Negative (Negative); Hyaline Casts,Urine 1 /lpf (0-2); Ketones,Urine Negative (Negative); Leukocyte Esterase,Urine Negative (Negative); Mucus,Urine Rare /hpf; Nitrite,Urine Negative (Negative); PH, Urine 5.5 (5.0-8.0); Protein,Urine Negative (Negative); RBC,Urine 1 /hpf (0-5); Specific Gravity,Urine 1.015 (1.001-1.035); Squamous Epithelial Cell,Urine 2 /hpf (0-4); Urobilinogen,Urine <2.0 mg/dL (<2.0)
[2018-10-20] MEDS ORDERED: CALCIUM GLUCONATE 1 GM in SODIUM CHLORIDE 0.9% 100 ML IVPB ONE (15:03)
[2018-10-20 16:43] VITALS: BP 130/91; PULSE 74; RESP 16
== END 2018-10-20 16:43 | disposition home or self-care (01) ==
LOC: EC 13:21
DX: E83.51 Hypocalcemia (principal); R19.7 Diarrhea, unspecified; E11.9 Type 2 diabetes mellitus without complications; I10 Essential (primary) hypertension; Z86.39 Personal history of other endocrine, nutritional and metabolic disease; Z90.89 Acquired absence of other organs; Z79.82 Long term (current) use of aspirin; Z79.4 Long term (current) use of insulin; Z79.899 Other long term (current) drug therapy; Z88.0 Allergy status to penicillin
CPT/HCPCS: 36415; 80053; 85025; 81001; 99283; 96365; J0610

== ENCOUNTER → 2018-11-04 | Outpatient (CLI) | payer MEDICAID ==
[2018-11-04 20:45] LABS: Follicle Stimulating Hormone 13.6 mIU/mL
[2018-11-04 21:21] LABS: African American GFR (CKD) 101.8 (60.0-200.0); Albumin 4.2 g/dL (3.80-4.90); Albumin/Globulin Ratio 1.75 (1.60-3.17); Anion Gap 8.6 mmol/L (4.00-12.00); BUN/Creat Ratio 23.75 Ratio (12.00-20.00); Calcium 8.6 mg/dL (8.7-10.3); Carbon Dioxide 30.4 mmol/L (21.6-31.8); Globulin 2.4 g/dL (1.6-3.3); Non-African American GFR(CKD) 87.8 (60.0-200.0); Potassium 4.3 mmol/L (3.5-5.5); Total Bilirubin 0.3 mg/dL (0.3-1.2); Total Protein 6.6 g/dL (6.2-8.2)
== END | disposition home or self-care (01) ==
LOC: LABWHC1 12:12
PROVIDERS: ATTEND Internal Medicine Endocrinology, Diabetes & Metabolism
DX: C73 Malignant neoplasm of thyroid gland (principal)
CPT/HCPCS: 36415; 80053; 83001; 83970; 84432; 84443; 86800

== ENCOUNTER → 2019-05-04 | Outpatient (CLI) | payer BC ==
[2019-05-04 17:34] LABS: African American GFR (CKD) 87.6 (60.0-200.0); Albumin 4.1 g/dL (3.80-4.90); Albumin/Globulin Ratio 1.58 (1.60-3.17); Anion Gap 8.6 mmol/L (4.00-12.00); BUN/Creat Ratio 21.11 Ratio (12.00-20.00); Calcium 8.7 mg/dL (8.7-10.3); Carbon Dioxide 27.4 mmol/L (21.6-31.8); Globulin 2.6 g/dL (1.6-3.3); Non-African American GFR(CKD) 75.6 (60.0-200.0); Potassium 4.5 mmol/L (3.5-5.5); Total Bilirubin 0.6 mg/dL (0.3-1.2); Total Protein 6.7 g/dL (6.2-8.2)
[2019-05-04 17:42] LABS: Follicle Stimulating Hormone 9.7 mIU/mL
== END | disposition home or self-care (01) ==
LOC: LABWHC1 10:38
PROVIDERS: ATTEND Internal Medicine Endocrinology, Diabetes & Metabolism
DX: C73 Malignant neoplasm of thyroid gland (principal)
CPT/HCPCS: 36415; 80053; 83001; 83970; 84432; 84443; 86800

== ENCOUNTER → 2019-05-22 | Outpatient (CLI) | payer BC ==
--- NOTE | 2019-05-22 15:40 | US ---
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 Thyroidectomy October 2018 GLAND SIZE: Right Residual Lobe: 4.5 x 1.4 x 1.6 cm Overall Parenchyma: heterogenous Left Residual Lobe: 3.2 x 1.7 x 1.4 cm Overall Parenchyma: heterogeneous Isthmus Thickness: 1.2 cm Patient states she had thyroidectomy October 2018 due to right lobe CA. Bilateral neck scanned, no evidence of lymphadenopathy. IMPRESSION: Residual thyroid tissue is seen bilaterally appearing diffusely heterogenous. Correlate w ith thyroglobulin level and consider nuclear medicine thyroid uptake scan in this patient with prior carcinoma to exclude recurrence.
== END | disposition home or self-care (01) ==
LOC: RADUSWWP 14:46
PROVIDERS: ATTEND Internal Medicine Endocrinology, Diabetes & Metabolism
DX: C73 Malignant neoplasm of thyroid gland (principal); E05.20 Thyrotoxicosis with toxic multinodular goiter without thyrotoxic crisis or storm
CPT/HCPCS: 76536

== ENCOUNTER → 2019-09-25 | Outpatient (CLI) | payer BC ==
[2019-09-25 18:32] LABS: Follicle Stimulating Hormone 10.2 mIU/mL
== END | disposition home or self-care (01) ==
LOC: LABWHC1 12:55
PROVIDERS: ATTEND Internal Medicine Endocrinology, Diabetes & Metabolism
DX: C73 Malignant neoplasm of thyroid gland (principal)
CPT/HCPCS: 36415; 83001; 84432; 84443; 86800

== ENCOUNTER → 2019-11-09 | Outpatient (CLI) | payer BC | LOC: LABWHC1 08:53 | PROVIDERS: ATTEND Internal Medicine Endocrinology, Diabetes & Metabolism | DX: Z53.9 Procedure and treatment not carried out, unspecified reason (principal) ==

== ENCOUNTER → 2019-11-12 | Outpatient (CLI) | payer BC | END | disposition home or self-care (01) | LOC: LABWHC1 08:06 | PROVIDERS: ATTEND Internal Medicine Endocrinology, Diabetes & Metabolism | DX: C73 Malignant neoplasm of thyroid gland (principal) | CPT/HCPCS: 36415; 84432; 84443; 86800 ==

== ENCOUNTER → 2019-12-21 | Outpatient (CLI) | payer BC | END | disposition home or self-care (01) | LOC: LABWHC1 12:42 | PROVIDERS: ATTEND Internal Medicine Endocrinology, Diabetes & Metabolism | DX: C73 Malignant neoplasm of thyroid gland (principal) | CPT/HCPCS: 36415; 84432; 84443; 86800 ==

== ENCOUNTER → 2020-02-19 | Outpatient (CLI) | payer BC ==
[2020-02-19 14:24] VITALS: BMI 49.1
== END | disposition home or self-care (01) ==
LOC: DBWHC3 13:49
PROVIDERS: ATTEND Family Medicine
DX: E11.65 Type 2 diabetes mellitus with hyperglycemia (principal)
CPT/HCPCS: G0108 ×2

== ENCOUNTER → 2020-04-04 | Outpatient (CLI) | payer BC | END | disposition home or self-care (01) | LOC: LABWHC1 11:50 | PROVIDERS: ATTEND Internal Medicine Endocrinology, Diabetes & Metabolism | DX: C73 Malignant neoplasm of thyroid gland (principal) | CPT/HCPCS: 36415; 84432; 84443; 86800 ==

== ENCOUNTER 2020-06-13 02:10 | Emergency (ER) | payer BC ==
[2020-06-13 02:20] VITALS: BP 139/67; PULSE 81; RESP 16; TEMP 98.4
[2020-06-13] MEDS ORDERED: LIDOCAINE 1%-EPI 1:100,000 20 ML VIAL SQ STA (02:49)
[2020-06-13] MEDS ORDERED: SULFAMETHOX-TMP 800-160MG 1 EACH TAB PO STA (03:12)
[2020-06-13] MEDS ORDERED: SULFAMETH-TMP DS STARTER PACK 2 TAB BTL PO STA (03:12)
--- NOTE | 2020-06-13 03:12 | ED ---
Skin/Abscess/FB HPI - General Chief complaint: Skin/Abscess/Foreign Body Stated complaint: Abscess on neck Time Seen by Provider: 06/13/20 02:16 Source: patient, RN notes reviewed, old records reviewed Mode of arrival: ambulatory Limitations: no limitations - History of Present Illness Initial comments: This is a 49-year-old female DF for evaluation patient Dese for evaluation of anterior neck pain. Patient had recent surgical procedure, had some biopsies done of anterior neck. Now it is significantly swollen and inflamed. Patient was placed on antibiotics but swelling has gotten worse redness and tenderness and got worse. Patient otherwise has no fevers and no other complaints able to eat and drink without difficulty will return without significant pain MD complaint: abscess/boil (Anterior neck) -: week(s) Tetanus Up to Date: yes Location: neck Severity: moderate Severity scale (1-10): 7 Quality: aching Consistency: constant Improves with: none Worsens with: none Context: recent illness (Recently on antibiotics for this abscess) Associated symptoms: denies other symptoms Treatments Prior to Arrival: none - Related Data Home Medications Medication Instructions Recorded Confirmed Aspirin EC [Ecotrin Low Dose] 81 mg PO DAILY 12/22/15 02/19/20 Atenolol [Tenormin] 50 mg PO DAILY 09/05/16 02/19/20 Furosemide [Lasix] 40 mg PO BID 09/05/16 02/19/20 Benazepril HCl [Lotensin] 40 mg PO DAILY 10/08/18 02/19/20 Potassium Chloride ER [K-Dur 10] 10 meq PO BID 10/08/18 02/19/20 Calcium Carb-Vit D 500Mg-5Mcg 1 tab PO DAILY 10/20/18 02/19/20 [Oscal 500+D] Glimepiride [Amaryl] 2 mg PO AC-BRKFST 02/19/20 02/19/20 Insulin Aspart [NovoLOG] 15 units SQ AC-TID 02/19/20 02/19/20 Insulin Glargine [Lantus] 50 unit SQ HS 02/19/20 02/19/20 amLODIPine [Norvasc] 5 mg PO DAILY 02/19/20 02/19/20 Previous Rx's Medication Instructions Recorded Sulfamethox-Tmp 800-160Mg [Bactrim 2 tab PO BID #40 tab 06/13/20 DS 800-160 mg] Allergies Allergy/AdvReac Type Severity Reaction Status Date / Time Penicillins AdvReac Nausea & Verified 06/13/20 02:20 Vomiting Review of Systems ROS Statement: Those systems with pertinent positive or pertinent negative responses have been documented in the HPI. ROS Other: All systems not noted in ROS Statement are negative. Past Medical History Past Medical History: Diabetes Mellitus, Hypertension, Thyroid Disorder Additional Past Medical History / Comment(s): NODULES ON THYROID, PRESSING ON THROAT. VARICOSE VEINS. EDEMA ANKLES. History of Any Multi-Drug Resistant Organisms: None Reported Past Surgical History: Breast Surgery, Section Additional Past Surgical History / Comment(s): Vascular Laser Surgery on Rt leg. John wrist ganglion cysts. Breast bx., thyroidectomy Past Anesthesia/Blood Transfusion Reactions: No Reported Reaction Past Psychological History: No Psychological Hx Reported Smoking Status: Former smoker Past Alcohol Use History: None Reported Past Drug Use History: None Reported - Past Family History Mother Family Medical History: Cancer, Deep Vein Thrombosis (DVT) Additional Family Medical History / Comment(s): BREAST CA Brother(s) Family Medical History: Cancer, Deep Vein Thrombosis (DVT) Additional Family Medical History / Comment(s): CA TUMOR OFF PITUITARY GLAND General Exam Limitations: no limitations General appearance: alert, in no apparent distress Head exam: Present: atraumatic, normocephalic, normal inspection Eye exam: Present: normal appearance, PERRL, EOMI. Absent: scleral icterus, conjunctival injection, periorbital swelling ENT exam: Present: normal exam, mucous membranes moist Neck exam: Present: other (Patient does have abscess to anterior neck). Absent: tenderness, meningismus, lymphadenopathy Respiratory exam: Present: normal lung sounds bilaterally. Absent: respiratory distress, wheezes, rales, rhonchi, stridor Cardiovascular Exam: Present: regular rate, normal rhythm, normal heart sounds. Absent: systolic murmur, diastolic murmur, rubs, gallop, clicks GI/Abdominal exam: Present: soft, normal bowel sounds. Absent: distended, tenderness, guarding, rebound, rigid Extremities exam: Present: normal inspection, full ROM, normal capillary refill. Absent: tenderness, pedal edema, joint swelling, calf tenderness Back exam: Present: normal inspection Neurological exam: Present: alert, oriented X3, CN II-XII intact Psychiatric exam: Present: normal affect, normal mood Skin exam: Present: warm, dry, intact, normal color. 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 Patient will be discharged home on new antibiotic Disposition Clinical Impression: Abscess of neck, Cellulitis Disposition: HOME SELF-CARE Condition: Good Instructions (If sedation given, give patient instructions): Abscess Incision and Drainage (ED) Prescriptions: Sulfamethox-Tmp 800-160Mg [Bactrim DS 800-160 mg] 2 tab PO BID #40 tab Is patient prescribed a controlled substance at d/c from ED?: No Referrals: Joel Myers MD [Primary Care Provider] - 1-2 days
== END 2020-06-13 03:34 | disposition home or self-care (01) ==
LOC: EC 02:10
DX: L02.11 Cutaneous abscess of neck (principal); E11.9 Type 2 diabetes mellitus without complications; I10 Essential (primary) hypertension; I83.90 Asymptomatic varicose veins of unspecified lower extremity; E89.0 Postprocedural hypothyroidism; Z79.82 Long term (current) use of aspirin; Z79.4 Long term (current) use of insulin; Z79.899 Other long term (current) drug therapy; Z88.0 Allergy status to penicillin; Z87.891 Personal history of nicotine dependence; Z80.3 Family history of malignant neoplasm of breast; Z80.8 Family history of malignant neoplasm of other organs or systems; Z82.49 Family history of ischemic heart disease and other diseases of the circulatory system
CPT/HCPCS: 10060; 87070; 87075; 87205; 99284

== ENCOUNTER → 2020-09-19 | Outpatient (CLI) | payer BC ==
--- NOTE | 2020-09-21 14:59 | MM ---
Reason for exam: screening (asymptomatic). Last mammogram was performed 2 years and 2 months ago. History: Patient has history of other cancer at age 48. Family history of breast cancer in mother at age 70. Benign US RT VAD breast biopsy of the right breast, June 18, 2011. 2 benign excisional biopsies of the left breast. Took hormonal contraceptives for 1 year. Physical Findings: A clinical breast exam by your physician is recommended on an annual basis and results should be correlated with mammographic findings. MG Screening Mammo w CAD Bilateral CC and MLO view(s) were taken. Prior study comparison: July 12, 2018, bilateral MG 3d screening mammo w/cad. July 16, 2016, bilateral MG screening mammo w CAD. There are scattered fibroglandular densities. No significant changes when compared with prior studies. ASSESSMENT: Benign, BI-RAD 2 RECOMMENDATION: Routine screening mammogram of both breasts in 1 year.
== END | disposition home or self-care (01) ==
LOC: RADMAMWWP 16:15
PROVIDERS: ATTEND Family Medicine
DX: Z12.31 Encounter for screening mammogram for malignant neoplasm of breast (principal); Z80.3 Family history of malignant neoplasm of breast
CPT/HCPCS: 77067

== ENCOUNTER → 2020-12-15 | Outpatient (CLI) | payer BC ==
--- NOTE | 2020-12-15 18:09 | US ---
EXAMINATION TYPE: US pelvis complete transvag DATE OF EXAM: 12/15/2020 COMPARISON: None CLINICAL HISTORY: 49-year-old female N92.1 Excessive and frequent menstruation. Irregular menses TECHNIQUE: Transvaginal (TV) and Transabdominal (TA) . Transabdominal sonographic images of the pel vis were acquired. Transvaginal sonographic images were medically necessary to better assess the fol lowing anatomy: Endometrium Date of LMP: 10/22/2020, FINDINGS: EXAM MEASUREMENTS: Uterus: 12.1 x 5.8 x 5.4 cm Endometrial Stripe: 1.3 cm Left Ovary: 3.1 x 1.7 x 2.2 cm 1. Uterus: Anteverted. Enlarged in size. Heterogenous. Multiple fibroids seen, best seen transab dominally. Largest seen right fundal - 2.6 x 2.3 x 2.2 cm. 2. Endometrium: Upper limits of normal. 3. Right Ovary: Obscured by overlying bowel gas 4. Left Ovary: wnl as visualized, limited. Not seen transvaginally. 5. Bilateral Adnexa: wnl 6. Posterior cul-de-sac: no free fluid 7. Cervix: A few nabothian cysts, largest measuring up to 2.0 cm. IMPRESSION: 1. Bulky fibroid uterus. The largest is along the right fundus measuring 2.6 cm. If fibroid mapping i s desired, consider female pelvic MRI. 2. Endometrial thickness of 1.3 cm should correspond to the secretory phase of the menstrual cycle. C linically correlate. 3. Unable to visualize the right ovary.
== END | disposition home or self-care (01) ==
LOC: RADUSWWP 14:22
PROVIDERS: ATTEND Obstetrics & Gynecology
DX: D25.9 Leiomyoma of uterus, unspecified (principal)
CPT/HCPCS: 76830; 76856

== ENCOUNTER → 2021-01-27 | Outpatient (CLI) | payer BC ==
[2021-01-27 16:54] LABS: HCT 37.6 % (37.2-46.3); HGB 10.6 g/dL (12.0-15.0); MCH 19.8 pg (27.0-32.0); MCHC 28.2 g/dL (32.0-37.0); MCV 70.3 fL (80.0-97.0); Mean Platelet Volume 10.4 fL (9.5-12.2); Platelet Count 366 X 10*3/uL (140-440); RBC 5.35 X 10*6/uL (4.10-5.20); RDW 18.2 % (11.5-14.5); WBC 8.93 X 10*3/uL (4.50-10.00)
[2021-01-27 17:45] LABS: Basophils # (A) 0.06 X 10*3/uL (0.00-0.10); Basophils % (A) 0.7 %; Eosinophils % (A) 2.2 %; Lymphocytes # (A) 1.99 X 10*3/uL (0.90-5.00); Lymphocytes % (A) 22.3 %; Microcytosis (M) 2+; Monocytes # (A) 0.74 X 10*3/uL (0.20-1.00); Monocytes % (A) 8.3 %; Neutrophils # (A) 5.91 X 10*3/uL (1.80-7.70); Neutrophils % (A) 66.2 %
== END | disposition home or self-care (01) ==
LOC: LABWHC1 07:57
PROVIDERS: ATTEND Obstetrics & Gynecology
DX: Z01.812 Encounter for preprocedural laboratory examination (principal)
CPT/HCPCS: 36415; 85025; 93005

== ENCOUNTER 2021-02-07 05:59 | Day surgery (SDC) | payer BC ==
[2021-02-01 11:47] VITALS: BMI 50.2
--- NOTE | 2021-02-06 16:10 | P.HPOB ---
History of Present Illness H&P Date: 02/06/21 Chief Complaint: Functional uterine bleeding Denae is a 50-year-old female with dysfunctional uterine bleeding. She also is noted to have a 12.17 m uterus and fibroid with a 1.3 cm lining. In discussing options with her she is interested most in having treatment done seen time as her diagnosis. She is aware that proceeding with an ablation procedure without prior endometrial sampling could result in her having concurrent cancer or hyperplasia which may require more second surgery but rather than take the chance of going and having to surgery she would for 1. We discussed other options including after diagnosis made of Lysteda over IUD or some other hormonal treatment and that this procedure in of itself is not designed to be a control and that some type of secondary control is likely necessary at least in the short-term. She is 50 years old the likelihood of getting is very small. Is not 0. Due to her morbid obesity a topical old doing a left scopic tubal ligation in [place] is 50 years old with her other past surgical risks and therefore we are only doing the ablation procedure. Risks/benefits/alternatives to the D&C and hysteroscopy NovaSure ablation are done in full and in detail and all questions were answered for her prior to proceeding to the operating room. Past Medical History Past Medical History: Cancer, Diabetes Mellitus, Hypertension, Sleep Apnea/CPAP/BIPAP, Thyroid Disorder Additional Past Medical History / Comment(s): EDEMA ANKLES. 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 History of Any Multi-Drug Resistant Organisms: None Reported Past Surgical History: Breast Surgery, Section Additional Past Surgical History / Comment(s): Vascular Laser Surgery on Rt leg. John wrist ganglion cysts. Breast bx., thyroidectomy, surg. for abscess on thyroid scar Past Anesthesia/Blood Transfusion Reactions: Previous Problems w/ Anesthesia Additional Past Anesthesia/Blood Transfusion Reaction / Comment(s): oxygen level was very low after last surgery, but came up on own-felt was due to probable sleep apnea Smoking Status: Former smoker - Past Family History Mother Family Medical History: Cancer, Deep Vein Thrombosis (DVT) Additional Family Medical History / Comment(s): BREAST CA Brother(s) Family Medical History: Cancer, Deep Vein Thrombosis (DVT) Additional Family Medical History / Comment(s): CA TUMOR OFF PITUITARY GLAND Medications and Allergies Home Medications Medication Instructions Recorded Confirmed Type Aspirin EC [Ecotrin Low Dose] 81 mg PO DAILY 12/22/15 02/01/21 History Furosemide [Lasix] 40 mg PO BID 09/05/16 02/01/21 History Glimepiride [Amaryl] 2 mg PO AC-BRKFST 02/19/20 02/01/21 History Insulin Aspart [NovoLOG] 40 units SQ AC-TID 02/19/20 02/01/21 History Insulin Glargine [Lantus] 50 unit SQ HS 02/19/20 02/01/21 History Levothyroxine Sodium [Synthroid] 137 mcg PO 1600 02/01/21 02/01/21 History Losartan/Hydrochlorothiazide 1 tab PO 1600 02/01/21 02/01/21 History [Losartan-Hctz 100-25 mg Tab] Metoprolol Succinate (ER) [Toprol 100 mg PO 1600 02/01/21 02/01/21 History Xl] Allergies Allergy/AdvReac Type Severity Reaction Status Date / Time Penicillins AdvReac Nausea & Verified 02/01/21 11:42 Vomiting Exam Osteopathic Statement: *. No significant issues noted on an osteopathic structural exam other than those noted in the History and Physical/Consult. - OBG Physical Exam Breast: both: normal (no masses) Abdomen: Obesity Abdomen: bowel sounds normal, no diffuse tenderness, no bruit present, no guarding noted, no hepatomegaly, no splenomegaly, no mass Vulva: both: normal Vagina: normal moisture, no discharge Cervix: no lesion, no discharge Uterus: normal size, normal contour Adnexa: both: normal Anus/Rectum: normal perianal skin, no rectal mass, no hemorrhoids, heme negative
[~2021-02-07 05:59] MED LIST changes: +DEXAMETHASONE SOD PHOSPHATE 4 MG/ML 1 ML VIAL IV ONE; -HEPARIN SODIUM,PORCINE 5,000 UNIT/ML 1 ML VIAL SQ ONE; -HYDROmorphone 0.5 MG/0.5 ML SYRINGE IVP PRN; +LACTATED RINGERS 1,000 ML IV SCH; -LIDOCAINE 1% 20 ML VIAL (10MG/ML) FOR IV START INTRADERMA PRN; -ONDANSETRON 4 MG/2 ML VIAL IVP PRN; -SCOPOLAMINE 1.5MG/72HR PATCH TRANSDERM ONE
[2021-02-07] MEDS ORDERED: HYDROmorphone 0.5 MG/0.5 ML SYRINGE IVP PRN (07:00)
[2021-02-07 07:14] LABS: Glucose,Whole Blood 281 mg/dL (75-99)
[2021-02-07] MEDS ORDERED: INSULIN ASPART (NovoLOG) 100 UNIT/ML VIAL SQ ONE (07:28)
[2021-02-07] MEDS ORDERED: SUCCINYLCHOLINE CHLORIDE VIAL 200 MG/10 ML VIAL IV ONE (07:30)
[2021-02-07] MEDS ORDERED: PROPOFOL 10 MG/ML 20 ML VIAL IV ONE (07:30)
[2021-02-07] MEDS ORDERED: LIDOCAINE 1% INJ 10MG/ML (20 ML MDV) ONE (07:30)
[2021-02-07] MEDS ORDERED: fentaNYL (PF) 50 MCG/ML 2 ML AMP ONE (07:30)
--- NOTE | 2021-02-07 08:19 | P.OP ---
Date of Procedure: 02/07/21 Preoperative Diagnosis: Dysfunctional uterine bleeding Postoperative Diagnosis: Same Procedure(s) Performed: D&C with hysteroscopy and NovaSure Anesthesia: KIAN Surgeon: Fausto Bradley Estimated Blood Loss (ml): 5 IV fluids (ml): 600 Pathology: other (Uterine curettings) Condition: stable Disposition: same day Operative Findings: Pathology pending grossly appears proliferative Description of Procedure: Patient was taken to the operating suite where a general anesthetic was found be adequate. She was prepped and draped in the normal sterile fashion and placed in the dorsal lithotomy position. Initially a weighted speculum was inserted in the vagina and the anterior lip of the surgery identified and grasped with Allis clamp. Cervix was then dilated and sounded to 11 cm. Camera was then inserted. Some minimal visualization was done as there was some blood in the uterine cavity. There was a small fibroid noted during the hysteroscopy but otherwise no gross findings. Camera was then removed and sharp curettings were obtained. This tissues collected and placed on Telfa sent to pathology for evaluation. Once this was accomplished NovaSure system was inserted with length of 6 and a width of 3 it was tested and enabled. Once it passes patency test it was turned on and burn for 82 seconds. Conclusion the burn camera was reinserted final removal of NovaSure and a good burn was noted along the endometrium. All incidents were then removed. Sponge, lap, needle counts were correct 2. Patient was then taken to the recovery room in stable and satisfactory condition. Plan - Discharge Summary Discharge Rx Participant: No New Discharge Prescriptions: New Ibuprofen [Motrin] 600 mg PO Q6HR PRN #30 tab PRN Reason: Pain No Action Aspirin EC [Ecotrin Low Dose] 81 mg PO DAILY Furosemide [Lasix] 40 mg PO BID Insulin Glargine [Lantus] 50 unit SQ HS Insulin Aspart [NovoLOG] 40 units SQ AC-TID Glimepiride [Amaryl] 2 mg PO AC-BRKFST Losartan/Hydrochlorothiazide [Losartan-Hctz 100-25 mg Tab] 1 tab PO 1600 Levothyroxine Sodium [Synthroid] 137 mcg PO 1600 Metoprolol Succinate (ER) [Toprol Xl] 100 mg PO 1600 Discharge Medication List Aspirin EC [Ecotrin Low Dose] 81 mg PO DAILY 12/22/15 [History] Furosemide [Lasix] 40 mg PO BID 09/05/16 [History] Glimepiride [Amaryl] 2 mg PO AC-BRKFST 02/19/20 [History] Insulin Aspart [NovoLOG] 40 units SQ AC-TID 02/19/20 [History] Insulin Glargine [Lantus] 50 unit SQ HS 02/19/20 [History] Levothyroxine Sodium [Synthroid] 137 mcg PO 1600 02/01/21 [History] Losartan/Hydrochlorothiazide [Losartan-Hctz 100-25 mg Tab] 1 tab PO 1600 02/01/21 [History] Metoprolol Succinate (ER) [Toprol Xl] 100 mg PO 1600 02/01/21 [History] Ibuprofen [Motrin] 600 mg PO Q6HR PRN #30 tab 02/07/21 [Rx] Follow up Appointment(s)/Referral(s): Fausto Bradley DO [Doctor of Osteopathic Medicine] - 10 Days Activity/Diet/Wound Care/Special Instructions: No Heavy lifting, limit stairs and driving, and pelvic rest. If any high temperatures, heavy bleeding, or severe pain call my office Discharge Disposition: HOME SELF-CARE
[2021-02-07 08:23] VITALS: TEMP 97
[2021-02-07 08:33] VITALS: RESP 16
[2021-02-07 08:39] LABS: Glucose,Whole Blood 313 mg/dL (75-99)
[2021-02-07 09:25] VITALS: BP 141/64; PULSE 77
== END 2021-02-07 09:47 | disposition home or self-care (01) ==
LOC: OR 05:59
PROVIDERS: ATTEND Obstetrics & Gynecology
DX: N93.8 Other specified abnormal uterine and vaginal bleeding (principal); Z79.4 Long term (current) use of insulin; Z79.82 Long term (current) use of aspirin
CPT/HCPCS: 58558; 81025; J0330; J1100; J2405; J2001; J3010; J2704; 88305

== ENCOUNTER → 2021-04-19 | Outpatient (CLI) | payer BC ==
--- NOTE | 2021-04-19 08:18 | XR ---
EXAMINATION TYPE: XR chest 2V DATE OF EXAM: 04/19/2021 COMPARISON: NONE TECHNIQUE: PA and lateral views submitted. HISTORY: Endometrial cancer preop FINDINGS: The lungs are clear and there is no pneumothorax, pleural effusion, or focal pneumonia. Heart size normal. Hypertrophic changes of the spine. Chronic appearing right-sided rib deformity. No overt fail ure. IMPRESSION: 1. No acute process.
[2021-04-19 08:32] LABS: African American GFR (CKD) >90 (>60 ml/min/1.73 sqM); Blood Urea Nitrogen 19 mg/dL (7-17); Non-African American GFR(CKD) >90 (>60 ml/min/1.73 sqM)
--- NOTE | 2021-04-19 11:27 | CT ---
EXAMINATION TYPE: CT abdomen pelvis w con DATE OF EXAM: 04/19/2021 COMPARISON: 07/29/2014 HISTORY: Endometrial cancer CT DLP: 5165.4 mGycm Automated exposure control for dose reduction was used. CONTRAST: CT scan of the abdomen pelvis is performed with IV Contrast, patient injected with 100 mL of Isovue 3 00. FINDINGS- LUNG BASES- No significant abnormality is appreciated. 3 mm vague nodular density left lower lobe ax ial image 3 likely benign LIVER/GB-multiple large gallstones. PANCREAS- No gross abnormality is seen. SPLEEN- No gross abnormality is seen. ADRENALS- No gross abnormality is seen. KIDNEYS/BLADDER-within the lateral margin of the left kidney there is a 2.4 cm mass measuring 64 Houn sfield units. No hydronephrosis. No nephrolithiasis. 1 cm lower pole exophytic nodule measures 5 Houn sfield units compatible with simple cyst. BOWEL- no bowel dilatation. Normal appendix. LYMPH NODES- No greater than 1cm abdominal or pelvic lymph nodes areappreciated. OSSEOUS STRUCTURES-hypertrophic and degenerative changes spine.. OTHER- abnormal attenuation involving the endometrium and endocervical canal. Mass or neoplasm in th e differential diagnosis measures 2.5 cm. IMPRESSION- 1. 1. There is a area of abnormal attenuation suggestive of a mass within the distal endometrium or endo cervical canal measuring 2.5 cm. No pathologic adenopathy. 2. There is a 2.4 cm mass left kidney which does not meet the criteria of a simple cyst. Measures 64 Hounsfield units. Recommend follow-up MRI to determine if this is related to a solid neoplastic proce ss or complicated cyst. Malignancy not excluded. 3. Multiple large gallstones
== END | disposition home or self-care (01) ==
LOC: RADCTMAIN 07:23
PROVIDERS: ATTEND Obstetrics & Gynecology
DX: Z01.818 Encounter for other preprocedural examination (principal); N85.02 Endometrial intraepithelial neoplasia [EIN]; K80.20 Calculus of gallbladder without cholecystitis without obstruction; N28.89 Other specified disorders of kidney and ureter
CPT/HCPCS: 82565; 84520; 71046; 74177; 36415; Q9967 ×2

== ENCOUNTER → 2021-05-08 | Outpatient (CLI) | payer BC ==
--- NOTE | 2021-05-09 03:23 | MR ---
EXAMINATION TYPE: MR kidney wo/w con DATE OF EXAM: 05/08/2021 COMPARISON: None HISTORY: Abnormal CT, left renal mass, endometrial CA. CONTRAST: Standard multiplanar, multisequence MRI departmental protocol images were obtained without contrast a nd with 15 mL intravenous Gadavist gadolinium contrast. The liver is enlarged and measures 26.5 cm in length. Spleen also is enlarged and measures 13 cm. The bile ducts are not dilated. Stomach is intact. There is no evidence of pancreatic mass. There is no adrenal mass. Kidneys have normal size. There is sharply marginated rounded area of sligh t decreased signal in the interpolar lateral left kidney. Lesion measures 3 cm in diameter and on the T2 images slight decreased signal compared to the renal parenchyma. Lesion does not show pathologic enhancement. There is no perinephric fluid. There is no sign of retroperitoneal adenopathy. The remai nder of the kidneys show fairly normal contrast enhancement. There is no sign of ascites. There is no sign of pleural effusion. Exam limited slightly by patient's size. IMPRESSION: There is sharply marginated rounded 3 cm lesion with slight decreased signal on the T2 images which a ppears to be nonenhancing and not changed in size compared to the CT scan of 04/19/2021. This has slig htly intermediate density on the CT scan and is probably atypical cortical cyst. I think this could b e followed conservatively with repeat CT scan in 6 months. Ultrasound might be helpful if visible in this large patient to confirm a cyst. There is hepatosplenomegaly.
== END | disposition home or self-care (01) ==
LOC: RADMRIMAIN 20:25
PROVIDERS: ATTEND Obstetrics & Gynecology
DX: N28.89 Other specified disorders of kidney and ureter (principal); R16.2 Hepatomegaly with splenomegaly, not elsewhere classified; C54.1 Malignant neoplasm of endometrium
CPT/HCPCS: 74183; A9585

== ENCOUNTER → 2021-05-09 | Outpatient (CLI) | payer BC ==
[2021-05-09 15:36] LABS: Basophils # (A) 0.06 X 10*3/uL (0.00-0.10); Basophils % (A) 0.6 %; Eosinophils # (A) 0.12 X 10*3/uL (0.04-0.35); Eosinophils % (A) 1.2 %; HCT 41.7 % (37.2-46.3); HGB 12.1 g/dL (12.0-15.0); Lymphocytes # (A) 1.94 X 10*3/uL (0.90-5.00); Lymphocytes % (A) 19.2 %; MCH 21.1 pg (27.0-32.0); MCV 72.8 fL (80.0-97.0); Mean Platelet Volume 10.1 fL (9.5-12.2); Monocytes # (A) 0.69 X 10*3/uL (0.20-1.00); Monocytes % (A) 6.8 %; Neutrophils # (A) 7.26 X 10*3/uL (1.80-7.70); Neutrophils % (A) 71.8 %; Platelet Count 391 X 10*3/uL (140-440); RBC 5.73 X 10*6/uL (4.10-5.20); RDW 19.7 % (11.5-14.5); WBC 10.11 X 10*3/uL (4.50-10.00)
[2021-05-09 19:46] LABS: African American GFR (CKD) 89.8 (60.0-200.0); BUN/Creat Ratio 26.95 Ratio (12.00-20.00); Blood Urea Nitrogen 23.5 mg/dL (9.0-27.0); Calcium 8.7 mg/dL (8.7-10.3); Chloride 96 mmol/L (96-109); Glucose 328 mg/dL (70-110); Non-African American GFR(CKD) 77.5 (60.0-200.0); Potassium 3.8 mmol/L (3.5-5.5); Sodium 134 mmol/L (135-145)
== END | disposition home or self-care (01) ==
LOC: LABWHC1 08:10
PROVIDERS: ATTEND Internal Medicine Endocrinology, Diabetes & Metabolism
DX: Z20.822 Contact with and (suspected) exposure to COVID-19 (principal); N85.02 Endometrial intraepithelial neoplasia [EIN]; C73 Malignant neoplasm of thyroid gland
CPT/HCPCS: 84481; 80048; 84443; 85025; 36415; U0003

== ENCOUNTER 2021-05-30 17:03 | Emergency (ER) | payer BC ==
[2021-05-30 17:18] VITALS: TEMP 97.9
--- NOTE | 2021-05-30 17:44 | ED ---
Female Urogenital HPI - General Chief complaint: Urogenital Stated complaint: 3wks post hysterectomy, abd pain Time Seen by Provider: 05/30/21 17:24 Source: patient Mode of arrival: ambulatory Limitations: no limitations - History of Present Illness Initial comments: Patient is a 50-year-old female who presents to the emergency department with a chief complaint of pelvic pressure and urinary retention x 3 days status post hysterectomy 3 weeks ago. Patient reports constant bilateral pelvic pressure worse with sitting down. She reports that she feels she is not emptying her bladder fully when urinating. She reports difficulty starting a stream to urinate. Patient does note that she has had nightly episodes of incontinence 3 nights. Patient denies dysuria or vaginal discharge. Patient denies fever, chills, generalized weakness, headache, shortness of breath, cough, chest pain, palpitations, abdominal pain, flank pain, nausea, and vomiting. - Related Data Home Medications Medication Instructions Recorded Confirmed Aspirin EC [Ecotrin Low Dose] 81 mg PO DAILY 12/22/15 05/30/21 Furosemide [Lasix] 40 mg PO DAILY 09/05/16 05/30/21 Glimepiride [Amaryl] 2 mg PO AC-BRKFST 02/19/20 05/30/21 Insulin Aspart [NovoLOG] See Protocol SQ AC-TID 02/19/20 05/30/21 Losartan/Hydrochlorothiazide 1 tab PO DAILY 02/01/21 05/30/21 [Losartan-Hctz 100-25 mg Tab] Acetaminophen [Tylenol] 1,000 mg PO Q4-6H PRN 05/30/21 05/30/21 Insulin Glargine,Hum.rec.anlog 65 units SQ HS 05/30/21 05/30/21 [Tin Jalloh] Latanoprost/Pf [Latanoprost 0.005% 1 drop BOTH EYES HS 05/30/21 05/30/21 Eye Drop] Levothyroxine Sodium [Synthroid] 300 mcg PO DAILY 05/30/21 05/30/21 Metoprolol Succinate [Toprol XL] 50 mg PO DAILY 05/30/21 05/30/21 Rosuvastatin [Crestor] 10 mg PO DAILY 05/30/21 05/30/21 Previous Rx's Medication Instructions Recorded Nitrofurantoin Macrocrystal 100 mg PO BID 5 Days #10 capsule 05/30/21 [Nitrofurantoin] Allergies Allergy/AdvReac Type Severity Reaction Status Date / Time Penicillins AdvReac Nausea & Verified 05/30/21 18:07 Vomiting Review of Systems ROS Statement: Those systems with pertinent positive or pertinent negative responses have been documented in the HPI. ROS Other: All systems not noted in ROS Statement are negative. Past Medical History Past Medical History: Diabetes Mellitus, Hypertension, Thyroid Disorder Additional Past Medical History / Comment(s): NODULES ON THYROID, PRESSING ON THROAT. VARICOSE VEINS. EDEMA ANKLES. History of Any Multi-Drug Resistant Organisms: None Reported Past Surgical History: Hysterectomy Additional Past Surgical History / Comment(s): Vascular Laser Surgery on Rt leg. John wrist ganglion cysts. Breast bx., thyroidectomy Past Anesthesia/Blood Transfusion Reactions: No Reported Reaction Past Psychological History: No Psychological Hx Reported Smoking Status: Never smoker Past Alcohol Use History: None Reported Past Drug Use History: None Reported - Past Family History Mother Family Medical History: Cancer, Deep Vein Thrombosis (DVT) Additional Family Medical History / Comment(s): BREAST CA Brother(s) Family Medical History: Cancer, Deep Vein Thrombosis (DVT) Additional Family Medical History / Comment(s): CA TUMOR OFF PITUITARY GLAND General Exam Limitations: no limitations Course Vital Signs 05/30/21 17:15 Temperature 97.9 F Pulse Rate 115 H Respiratory 18 Rate Blood Pressure 162/75 O2 Sat by Pulse 96 Oximetry Medical Decision Making - Medical Decision Making This is a 50-year-old female who presents with pelvic pressure, urinary retention and nightly urinary incontinence x 3 days status post hysterectomy 3 weeks ago. Thorough history and examination were performed. Post residual volume is 390 mL. Urinalysis reveals evidence of infection with 178 WBC and lar ge leukocyte esterase. There are trace ketones in the urine. Blood glucose is 144. On reevaluation patient reports she did urinate after bladder scan which relieved some pressure. Patient given first dose of Macrobid in the emergency department and prescribed a 5 day course. I also prescribed Diflucan as patient reports she has history of yeast infection post antibiotic treatment. Return parameters discussed. I did address hyperglycemis with patient. Patient states that she takes insulin and glimepiride for her diabetes managed by primary care provider Dr. Myers. Patient instructed to schedule an appointment with Dr. Myers in 1-2 days for diabetes evaluation and repeat urinalysis. Dr. Vega is my attending. - Lab Data Lab Results 05/30/21 05/30/21 Range/Units 17:44 20:07 POC Glucose (mg/dL) 144 H (75-99) mg/dL POC Glu Vinyl Top Installer ID Olinda Owen Urine Color Yellow Urine Appearance Cloudy H (Clear) Urine pH 6.0 (5.0-8.0) Ur Specific [place] 1.035 (1.001-1.035) Urine Protein 2+ H (Negative) Urine Glucose (UA) 3+ H (Negative) Urine Ketones Trace H (Negative) Urine Blood Moderate H (Negative) Urine Nitrite Negative (Negative) Urine Bilirubin Negative (Negative) Urine Urobilinogen 3.0 (<2.0) mg/dL Ur Leukocyte Esterase Large H (Negative) Urine RBC 38 H (0-5) /hpf Urine WBC 178 H (0-5) /hpf Ur Squamous Epith Cells 17 H (0-4) /hpf Urine Mucus Moderate H (None) /hpf Disposition Clinical Impression: Urinary tract infection Disposition: HOME SELF-CARE Condition: Good Instructions (If sedation given, give patient instructions): Urinary Tract Infection in Women (ED) Additional Instructions: Drink plenty of fluids. Take medication as prescribed. Schedule an appointment with primary care provider for diabetes management and repeat urinalysis. Return to the emergency department if you experience new, concerning, or worsening symptoms Prescriptions: Nitrofurantoin Macrocrystal [Nitrofurantoin] 100 mg PO BID 5 Days #10 capsule Is patient prescribed a controlled substance at d/c from ED?: No Referrals: Joel Myers MD [Primary Care Provider] - 1-2 days Time of Disposition: 20:36
[2021-05-30 18:12] LABS: Appearance,Urine Cloudy (Clear); Bilirubin,Urine Negative (Negative); Blood,Urine Moderate (Negative); Color,Urine Yellow; Glucose,Urine (UA) 3+ (Negative); Ketones,Urine Trace (Negative); Leukocyte Esterase,Urine Large (Negative); Mucus,Urine Moderate /hpf; Nitrite,Urine Negative (Negative); Protein,Urine 2+ (Negative); RBC,Urine 38 /hpf (0-5); Specific Gravity,Urine 1.035 (1.001-1.035); Squamous Epithelial Cell,Urine 17 /hpf (0-4); WBC,Urine 178 /hpf (0-5)
[2021-05-30] MEDS ORDERED: NITROFURANTOIN MONOHYD/M-CRYST 100 MG CAP PO ONE (19:31)
[2021-05-30 20:08] LABS: Glucose,Whole Blood 144 mg/dL (75-99)
[2021-05-30 20:59] VITALS: BP 154/90; PULSE 95; RESP 16
== END 2021-05-30 21:04 | disposition home or self-care (01) ==
LOC: EC 17:03
DX: N39.0 Urinary tract infection, site not specified (principal); E11.9 Type 2 diabetes mellitus without complications; I10 Essential (primary) hypertension; E07.9 Disorder of thyroid, unspecified; Z79.82 Long term (current) use of aspirin; Z79.4 Long term (current) use of insulin; Z88.0 Allergy status to penicillin; Z90.710 Acquired absence of both cervix and uterus
CPT/HCPCS: 36415; 81001; 87086; 99284

== ENCOUNTER → 2021-05-31 | Outpatient (CLI) | payer BC ==
[2021-05-31 19:01] LABS: HCT 41.5 % (37.2-46.3); HGB 12.1 g/dL (12.0-15.0); MCH 21.6 pg (27.0-32.0); MCHC 29.2 g/dL (32.0-37.0); MCV 74.2 fL (80.0-97.0); NRBC Per 100 WBC 0 /100 WBCS (0.0-0.0); Platelet Count 406 X 10*3/uL (140-440); RBC 5.59 X 10*6/uL (4.10-5.20); RDW 18.6 % (11.5-14.5); WBC 9.15 X 10*3/uL (4.50-10.00)
[2021-05-31 19:17] LABS: ALT 23 U/L (8-44); AST 20 U/L (13-35); African American GFR (CKD) 102.6 (60.0-200.0); Albumin 3.7 g/dL (3.8-4.9); Alkaline Phosphatase 143 U/L (41-126); BUN/Creat Ratio 28.17 Ratio (12.00-20.00); Calcium 8.4 mg/dL (8.7-10.3); Carbon Dioxide 25.3 mmol/L (20.0-27.5); Chloride 99 mmol/L (96-109); Chol/HDL Ratio 3.13 Ratio; Globulin 3.8 g/dL (1.6-3.3); Glucose 250 mg/dL (70-110); LDL Cholesterol,Calculated 58.7 mg/dL (0.0-131.0); Non-African American GFR(CKD) 88.5 (60.0-200.0); Potassium 3.7 mmol/L (3.5-5.5); Sodium 139 mmol/L (135-145); Total Protein 7.5 g/dL (6.2-8.2)
== END | disposition home or self-care (01) ==
LOC: LABWHC1 11:14
PROVIDERS: ATTEND Family Medicine
DX: E11.65 Type 2 diabetes mellitus with hyperglycemia (principal)
CPT/HCPCS: 36415; 80053; 80061; 83036; 84443; 85027

== ENCOUNTER → 2021-10-26 | Outpatient (CLI) | payer BC ==
--- NOTE | 2021-10-27 14:53 | MM ---
Reason for Exam: Screening (asymptomatic). Last mammogram was performed 1 year(s) and 1 month(s) ago. Patient History: Menarche at age 13. First Full-Term at age 27. Left ovary removed at age 50. Right ovary removed at age 50. Hysterectomy at age 50. Other cancer, age 48. Patient used Hormonal Contraceptives for 1 year. Benign Excisional Biopsy on the left side. Benign Excisional Biopsy on the left side. 06/18/2011, Benign Core Biopsy on the right side. Mother had breast cancer, age 70. Risk Values: Gloria 5 year model risk: 2.9%. NCI Lifetime model risk: 24.1%. Prior Study Comparison: 07/16/2016 Bilateral Screening Mammogram, [facility]. 07/12/2018 Bilateral Screening Mammogram, [facility]. 09/19/2020 Bilateral Screening Mammogram, [facility]. Tissue Density: There are scattered fibroglandular densities. Findings: Analyzed By CAD. There is no suspicious group of microcalcifications or new suspicious mass in either breast. Previous mammotome biopsy within the right breast. Stable asymmetric breast tissue in the right upper outer quadrant posterior depth. Chronic nodularity in the right breast at clip and in the left breast. No significant change from prior examination. Overall Assessment: Benign, BI-RAD 2 Management: Screening Mammogram of both breasts in 1 year. A clinical breast exam by your physician is recommended on an annual basis and results should be correlated with mammographic findings. Electronically signed and approved by: uLcien Crandall D.O.
== END | disposition home or self-care (01) ==
LOC: RADMAMWWP 15:38
PROVIDERS: ATTEND Obstetrics & Gynecology
DX: Z12.31 Encounter for screening mammogram for malignant neoplasm of breast (principal); Z80.3 Family history of malignant neoplasm of breast
CPT/HCPCS: 77067

== ENCOUNTER → 2022-03-20 | Outpatient (CLI) | payer BC ==
--- NOTE | 2022-03-20 13:16 | US ---
EXAMINATION TYPE: US venous doppler duplex LE RT DATE OF EXAM: 03/20/2022 1:09 PM COMPARISON: NONE CLINICAL HISTORY: Pain RLE M79.661. Pain in right posterior knee SIDE PERFORMED: Right TECHNIQUE: The lower extremity deep venous system is examined utilizing real time linear array sonog cl[place] with graded compression, doppler sonography and color-flow sonography. VESSELS IMAGED: Common Femoral Vein Deep Femoral Vein Greater Saphenous Vein * Femoral Vein Popliteal Vein Small Saphenous Vein * Proximal Calf Veins (* superficial vessels) Right Leg: Negative for DVT IMPRESSION: No evidence for DVT at this time.
== END | disposition home or self-care (01) ==
LOC: RADUSWWP 12:45
PROVIDERS: ATTEND Internal Medicine Clinical Cardiac Electrophysiology
DX: M79.661 Pain in right lower leg (principal)

== ENCOUNTER → 2022-03-23 | Outpatient (CLI) | payer BC | END | disposition home or self-care (01) | LOC: LABWHC1 10:51 | PROVIDERS: ATTEND Nurse Practitioner Adult Health | DX: I47.1 Supraventricular tachycardia (principal) | CPT/HCPCS: 36415; 84443 ==

== ENCOUNTER → 2022-06-26 | Outpatient (CLI) | payer OTHER ==
[2022-06-26 14:18] LABS: HCT 43.8 % (37.2-46.3); HGB 13.8 g/dL (12.0-15.0); MCH 25.9 pg (27.0-32.0); MCHC 31.5 g/dL (32.0-37.0); MCV 82.2 fL (80.0-97.0); Mean Platelet Volume 10.1 fL (9.5-12.2); NRBC Per 100 WBC 0 /100 WBCS (0.0-0.0); Platelet Count 269 X 10*3/uL (140-440); RBC 5.33 X 10*6/uL (4.10-5.20); RDW 14.9 % (11.5-14.5); WBC 8.28 X 10*3/uL (4.50-10.00)
[2022-06-26 18:02] LABS: ALT 24 U/L (8-44); AST 16 U/L (13-35); African American GFR (CKD) 98.9 (60.0-200.0); Albumin 3.9 g/dL (3.8-4.9); Alkaline Phosphatase 124 U/L (41-126); Blood Urea Nitrogen 20.8 mg/dL (9.0-27.0); Calcium 8.6 mg/dL (8.7-10.3); Carbon Dioxide 28.1 mmol/L (20.0-27.5); Chloride 100 mmol/L (96-109); Chol/HDL Ratio 2.92 Ratio; Glucose 220 mg/dL (70-110); LDL Cholesterol,Calculated 66.5 mg/dL (0.0-131.0); Non-African American GFR(CKD) 85.4 (60.0-200.0); Potassium 3.7 mmol/L (3.5-5.5); Sodium 142 mmol/L (135-145); Total Protein 6.9 g/dL (6.2-8.2)
== END | disposition home or self-care (01) ==
LOC: LABWHC1 09:03
PROVIDERS: ATTEND Physician Assistant Medical
DX: Z00.00 Encounter for general adult medical examination without abnormal findings (principal); I10 Essential (primary) hypertension; E11.65 Type 2 diabetes mellitus with hyperglycemia; E03.9 Hypothyroidism, unspecified
CPT/HCPCS: 36415; 80053; 80061; 83036; 84443; 85027

== ENCOUNTER 2022-08-17 06:44 | Day surgery (SDC) | payer OTHER ==
[2022-08-14 16:27] VITALS: BMI 49.4
[~2022-08-17 06:44] MED LIST changes: -DEXAMETHASONE SOD PHOSPHATE 4 MG/ML 1 ML VIAL IV ONE; +LIDOCAINE 1% (10MG/ML) FOR IV START INTRADERMA PRN; -ONDANSETRON 4 MG/2 ML VIAL IVP ONE; -Pre Op ABX Message 1 EACH MISC MISCELLANE ONE
[2022-08-17 07:32] LABS: Glucose,Whole Blood 293 mg/dL (70-110)
[2022-08-17 07:34] VITALS: TEMP 97.8
[2022-08-17] MEDS ORDERED: INSULIN ASPART (NovoLOG) 100 UNIT/ML VIAL SQ ONE (07:41)
[2022-08-17] MEDS ORDERED: PROPOFOL 10 MG/ML 20 ML VIAL IV ONE (08:04)
[2022-08-17] MEDS ORDERED: LIDOCAINE 2% INJ 20 MG/ML (2 ML VIAL) ONE (08:04)
--- NOTE | 2022-08-17 08:26 | P.PCN ---
Date of Procedure: 08/17/22 Procedure(s) Performed: BRIEF HISTORY: Patient is a 51-year-old pleasant white female scheduled for an elective colonoscopy as a part of screening for colon cancer. PROCEDURE PERFORMED: Colonoscopy with biopsy. PREOPERATIVE DIAGNOSIS: Screening for colon cancer. IV sedation per Anesthesia. PROCEDURE: After informed consent was obtained, the patient, was brought into the endoscopy unit. IV sedation was administered by Anesthesia under continuous monitoring. Digital rectal examination was normal. Initially the Olympus CF-160 flexible video colonoscope was then inserted in the rectum, gradually advanced into the cecum without any difficulty. Careful examination was performed as the scope was gradually being withdrawn. Ileocecal valve and the appendiceal orifice were visualized and appeared normal. Prep was excellent. Mucosa of the cecum, ascending colon, transverse colon, appeared normal. The descending colon there was a 4 mm polyp that was removed by cold biopsy. Rest of the descending colon, sigmoid colon, and rectum appeared normal. Retroflexion was performed in the rectum and no lesions were seen. The patient tolerated the procedure well. IMPRESSION: 4 mm descending colon polyp status post cold biopsy Rest of the colon appeared normal RECOMMENDATIONS: Findings of this examination were discussed with the patient as well as his family. He was advised to follow with the biopsy results. If the biopsy results adenoma she can have a repeat colonoscopy in 5 years..
[2022-08-17 08:33] VITALS: RESP 16
[2022-08-17 08:39] LABS: Glucose,Whole Blood 256 mg/dL (70-110)
[2022-08-17 08:52] VITALS: BP 140/84; PULSE 71
[2022-08-17] MEDS ORDERED: INSULIN ASPART (NovoLOG) 100 UNIT/ML VIAL SQ SCH (12:30)
== END 2022-08-17 09:13 | disposition home or self-care (01) ==
LOC: ORWHC2ENDO 06:44
PROVIDERS: ATTEND Internal Medicine Gastroenterology
DX: Z12.11 Encounter for screening for malignant neoplasm of colon (principal); K63.5 Polyp of colon; I10 Essential (primary) hypertension; E03.9 Hypothyroidism, unspecified; Z79.82 Long term (current) use of aspirin; Z79.890 Hormone replacement therapy; Z79.4 Long term (current) use of insulin; Z79.899 Other long term (current) drug therapy; Z88.0 Allergy status to penicillin
CPT/HCPCS: 45380; J2704; J2001; 88305

== ENCOUNTER → 2022-09-01 | Outpatient (CLI) | payer OTHER ==
[2022-09-01 14:33] LABS: Chol/HDL Ratio 2.65 Ratio; LDL Cholesterol,Calculated 49.3 mg/dL (0.0-131.0)
== END | disposition home or self-care (01) ==
LOC: LABWHC1 08:02
PROVIDERS: ATTEND Internal Medicine Clinical Cardiac Electrophysiology
DX: E11.9 Type 2 diabetes mellitus without complications (principal); E03.9 Hypothyroidism, unspecified; E78.5 Hyperlipidemia, unspecified
CPT/HCPCS: 36415; 80061; 83036; 84439; 84443

== ENCOUNTER 2022-09-29 15:41 | Observation (INO) | payer OTHER ==
--- NOTE | 2022-09-29 16:17 | ED ---
General Adult HPI - General Chief complaint: Arrhythmia/Palpitations Stated complaint: Palpitations Time Seen by Provider: 09/29/22 16:04 Source: patient, RN notes reviewed, old records reviewed Mode of arrival: ambulatory Limitations: no limitations - History of Present Illness Initial comments: 51-year-old female presenting for evaluation of palpitations. Patient has had ongoing issues with palpitations for the past one year. She's been seen by [facility]. She has worn a monitor for 3 days approximately one year ago. She was not informed of any history of arrhythmia. She states that even with the most minimal exertion she has palpitations and feels lightheaded. No chest pain. No dyspnea. No fever. She has been eating and drinking normally. She is currently on thyroid medication for hypothyroidism - Related Data Home Medications Medication Instructions Recorded Confirmed Aspirin EC [Ecotrin Low Dose] 81 mg PO DAILY 12/22/15 08/14/22 Furosemide [Lasix] 40 mg PO DAILY 09/05/16 08/14/22 Insulin Glargine,Hum.rec.anlog 70 units SQ HS 05/30/21 08/14/22 [Toujeo Max Solostar] Levothyroxine Sodium [Synthroid] 0 mcg PO DAILY 05/30/21 08/14/22 Metoprolol Succinate [Toprol XL] 50 mg PO HS 05/30/21 08/14/22 Dulaglutide [Trulicity] 0.75 mg SQ Q7D 08/14/22 08/14/22 INSULIN LISPRO (humaLOG) [humaLOG] 0 units SQ TID-W/MEALS 08/14/22 08/14/22 Lovastatin [Mevacor] 5 mg PO HS 08/14/22 08/14/22 hydroCHLOROthiazide 25 mg PO HS 08/14/22 08/14/22 Allergies Allergy/AdvReac Type Severity Reaction Status Date / Time Penicillins AdvReac Nausea & Verified 08/14/22 16:17 Vomiting Review of Systems ROS Statement: Those systems with pertinent positive or pertinent negative responses have been documented in the HPI. ROS Other: All systems not noted in ROS Statement are negative. Past Medical History Past Medical History: Cancer, Diabetes Mellitus, Hypertension, Thyroid Disorder Additional Past Medical History / Comment(s): VARICOSE VEINS. EDEMA ANKLES. NO THYROID. HEART PALPITATIONS. ENDOMETRIAL CANCER. History of Any Multi-Drug Resistant Organisms: None Reported Past Surgical History: Hysterectomy Additional Past Surgical History / Comment(s): Vascular Laser Surgery on Rt leg. John wrist ganglion cysts. Breast bx., thyroidectomy Past Anesthesia/Blood Transfusion Reactions: Postoperative Nausea & Vomiting (PONV) Past Psychological History: No Psychological Hx Reported Smoking Status: Never smoker Past Alcohol Use History: None Reported Past Drug Use History: None Reported - Past Family History Mother Family Medical History: Cancer, Deep Vein Thrombosis (DVT) Additional Family Medical History / Comment(s): BREAST CA Brother(s) Family Medical History: Cancer, Deep Vein Thrombosis (DVT) Additional Family Medical History / Comment(s): CA TUMOR OF PITUITARY GLAND General Exam Limitations: no limitations General appearance: alert, in no apparent distress Head exam: Present: atraumatic, normocephalic Eye exam: Present: normal appearance, PERRL ENT exam: Present: normal exam Neck exam: Present: normal inspection. Absent: tenderness, meningismus Respiratory exam: Present: normal lung sounds bilaterally. Absent: respiratory distress, wheezes Cardiovascular Exam: Present: regular rate, normal rhythm GI/Abdominal exam: Present: soft. Absent: distended, tenderness, guarding Extremities exam: Present: pedal edema, other (Chronic venous stasis) Neurological exam: Present: alert, oriented X3, CN II-XII intact. Absent: motor sensory deficit Psychiatric exam: Present: normal affect, normal mood Skin exam: Present: warm, dry, intact. Absent: cyanosis, diaphoretic Course Vital Signs 09/29/22 09/29/22 15:48 17:24 Temperature 98.1 F Pulse Rate 98 99 Respiratory 20 20 Rate Blood Pressure 181/81 140/88 O2 Sat by Pulse 97 94 L Oximetry Medical Decision Making - Medical Decision Making Was pt. sent in by a medical professional or institution (, PA, DIVISION HUMAN RESOURCES MANAGER, urgent care, hospital, or senior care...) When possible be specific @ -[No] Did you speak to anyone other than the patient for history (EMS, parent, family, police, friend...)? What history was obtained from this source @ -[No] Did you review nursing and triage notes (agree or disagree)? Why? @ -[I reviewed and agree with nursing and triage notes] Were old charts reviewed (outside hosp., previous admission, EMS record, old EKG, old radiological studies, urgent care reports/EKG's, senior care records)? Report findings @ -[No old charts were reviewed] Differential Diagnosis (chest pain, altered mental status, abdominal pain women, abdominal pain men, vaginal bleeding, weakness, fever, dyspnea, syncope, headache, dizziness, GI bleed, back pain, seizure, CVA, palpatations, mental health, musculoskeletal)? @ -[Differential Palpitations Ventricular arrhythmias, atrial arrhythmias, myocardial infarction, anemia, thyrotoxicosis, electrolyte imbalance, hypokalemia, pulmonary embolism, pulmonary disease, drugs, alcohol, anxiety, stress.... This is not meant to be an all-inclusive list. EKG interpreted by me (3pts min.). @ -Sinus rhythm versus ectopic atrial rhythm with prolonged WY interval, right bundle branch block, left anterior fascicular block rate of 95, WY interval 252, QRS duration 151, QTC 413 X-rays interpreted by me (1pt min.). @ -[Chest x-ray negative for acute cardiopulmonary findings] CT interpreted by me (1pt min.). @ -[None done] U/S interpreted by me (1pt. min.). @ -[None done] What testing was considered but not performed or refused? (CT, X-rays, U/S, labs)? Why? @ -[None] What meds were considered but not given or refused? Why? @ -[None] Did you discuss the management of the patient with other professionals (professionals i.e. , PA, DIVISION HUMAN RESOURCES MANAGER, lab, RT, psych nurse, social work msw, software quality assurance analyst, teacher, prison officer, wrapper caser)? Give summary @ -[facility] Was smoking cessation discussed for >3mins.? @ -[No] Was critical care preformed (if so, how long)? @ -[No] Were there social determinants of health that impacted care today? How? (Homelessness, low income, unemployed, alcoholism, drug addiction, transportation, low edu. Level, literacy, decrease access to med. care, long term, rehab)? @ -[No] Was there de-escalation of care discussed even if they declined (Discuss DNR or withdrawal of care, Hospice)? DNR status @ -[No] What co-morbidities impacted this encounter? (DM, HTN, Smoking, COPD, CAD, Cancer, CVA, ARF, Chemo, Hep., AIDS, mental health diagnosis, sleep apnea, morbid obesity)? @ -[Hypertension, hypothyroidism Was patient admitted / discharged? Hospital course, mention meds given and route, prescriptions, significant lab abnormalities, going to OR and other pertinent info. @ -[51-year-old female with palpitations. Patient is in a abnormal rhythm, suspect ectopic pacemaker with first-degree AV block, and right bundle branch block. This is a significant change from prior EKG reviewed in 2019. Patient has normal CBC, normal CMP with the exception of some hypokalemia which is r eplaced with oral potassium in the emergency department. Troponin is negative. Chest x-ray is clear. I did discuss case with cardiology, Dr. Pandya, who recommends verapamil 40 mg 3 times a day. This medication is initiated in the emergency department. Patient will be placed in observation on telemetry Undiagnosed new problem with uncertain prognosis? @ -[No] Drug Therapy requiring intensive monitoring for toxicity (Heparin, Nitro, In sulin, Cardizem)? @ -[No] Were any procedures done? @ -[No] Diagnosis/symptom? @ -[Arrhythmia Acute, or Chronic, or Acute on Chronic? @ -[Acute Uncomplicated (without systemic symptoms) or Complicated (systemic symptoms)? @ -[default] Side effects of treatment? @ -[No] Exacerbation, Progression, or Severe Exacerbation? @ -[No] Poses a threat to life or bodily function? How? (Chest pain, [place], [place], pneumonia, PE, COPD, DKA, ARF, appy, cholecystitis, CVA, Diverticulitis, Homicidal, Suicidal, threat to staff... and all critical care pts) @ -[Yes, arrhythmia - Lab Data Result diagrams: 09/29/22 16:15 09/29/22 16:15 Lab Results 09/29/22 09/29/22 09/29/22 Range/Units 16:15 16:15 16:15 WBC 8.8 (3.8-10.6) k/uL RBC 5.53 H (3.80-5.40) m/uL Hgb 14.5 (11.4-16.0) gm/dL Hct 43.7 (34.0-46.0) % MCV 79.1 L (80.0-100.0) fL MCH 26.1 (25.0-35.0) pg MCHC 33.1 (31.0-37.0) g/dL RDW 14.0 (11.5-15.5) % Plt Count 312 (150-450) k/uL MPV 7.7 Neutrophils % 74 % Lymphocytes % 18 % Monocytes % 5 % Eosinophils % 2 % Basophils % 0 % Neutrophils # 6.5 (1.3-7.7) k/uL Lymphocytes # 1.6 (1.0-4.8) k/uL Monocytes # 0.4 (0-1.0) k/uL Eosinophils # 0.1 (0-0.7) k/uL Basophils # 0.0 (0-0.2) k/uL PT 10.4 (9.0-12.0) sec INR 1.0 (<1.2) APTT 26.4 (22.0-30.0) sec Sodium 137 (137-145) mmol/L Potassium 3.2 L (3.5-5.1) mmol/L Chloride 97 L (98-107) mmol/L Carbon Dioxide 31 H (22-30) mmol/L Anion Gap 9 mmol/L BUN 22 H (7-17) mg/dL Creatinine 0.75 (0.52-1.04) mg/dL Est GFR (CKD-EPI)AfAm >90 (>60 ml/min/1.73 sqM) Est GFR (CKD-EPI)NonAf >90 (>60 ml/min/1.73 sqM) Glucose 150 H (74-99) mg/dL Calcium 9.0 (8.4-10.2) mg/dL Magnesium 1.9 (1.6-2.3) mg/dL Total Bilirubin 0.5 (0.2-1.3) mg/dL AST 20 (14-36) U/L ALT 20 (4-34) U/L Alkaline Phosphatase 116 (38-126) U/L Troponin I (0.000-0.034) ng/mL Total Protein 7.2 (6.3-8.2) g/dL Albumin 4.0 (3.5-5.0) g/dL Urine Color Urine Appearance (Clear) Urine pH (5.0-8.0) Ur Specific Zo[place] (1.001-1.035) Urine Protein (Negative) Urine Glucose (UA) (Negative) Urine Ketones (Negative) Urine Blood (Negative) Urine Nitrite (Negative) Urine Bilirubin (Negative) Urine Urobilinogen (<2.0) mg/dL Ur Leukocyte Esterase (Negative) Urine RBC (0-5) /hpf Urine WBC (0-5) /hpf Ur Squamous Epith Cells (0-4) /hpf Urine Bacteria (None) /hpf Hyaline Casts (0-2) /lpf Urine Mucus (None) /hpf 09/29/22 09/29/22 Range/Units 16:15 16:40 WBC (3.8-10.6) k/uL RBC (3.80-5.40) m/uL Hgb (11.4-16.0) gm/dL Hct (34.0-46.0) % MCV (80.0-100.0) fL MCH (25.0-35.0) pg MCHC (31.0-37.0) g/dL RDW (11.5-15.5) % Plt Count (150-450) k/uL MPV Neutrophils % % Lymphocytes % % Monocytes % % Eosinophils % % Basophils % % Neutrophils # (1.3-7.7) k/uL Lymphocytes # (1.0-4.8) k/uL Monocytes # (0-1.0) k/uL Eosinophils # (0-0.7) k/uL Basophils # (0-0.2) k/uL PT (9.0-12.0) sec INR (<1.2) APTT (22.0-30.0) sec Sodium (137-145) mmol/L Potassium (3.5-5.1) mmol/L Chloride (98-107) mmol/L Carbon Dioxide (22-30) mmol/L Anion Gap mmol/L BUN (7-17) mg/dL Creatinine (0.52-1.04) mg/dL Est GFR (CKD-EPI)AfAm (>60 ml/min/1.73 sqM) Est GFR (CKD-EPI)NonAf (>60 ml/min/1.73 sqM) Glucose (74-99) mg/dL Calcium (8.4-10.2) mg/dL Magnesium (1.6-2.3) mg/dL Total Bilirubin (0.2-1.3) mg/dL AST (14-36) U/L ALT (4-34) U/L Alkaline Phosphatase (38-126) U/L Troponin I <0.012 (0.000-0.034) ng/mL Total Protein (6.3-8.2) g/dL Albumin (3.5-5.0) g/dL Urine Color Yellow Urine Appearance Clear (Clear) Urine pH 5.5 (5.0-8.0) Ur Specific Zo[place] 1.028 (1.001-1.035) Urine Protein Trace H (Negative) Urine Glucose (UA) 2+ H (Negative) Urine Ketones Negative (Negative) Urine Blood Small H (Negative) Urine Nitrite Negative (Negative) Urine Bilirubin Negative (Negative) Urine Urobilinogen <2.0 (<2.0) mg/dL Ur Leukocyte Esterase Negative (Negative) Urine RBC 3 (0-5) /hpf Urine WBC <1 (0-5) /hpf Ur Squamous Epith Cells 5 H (0-4) /hpf Urine Bacteria Rare H (None) /hpf Hyaline Casts 1 (0-2) /lpf Urine Mucus Occasional H (None) /hpf Disposition Clinical Impression: Palpitations Disposition: ADMITTED IP TO THIS HOSP Condition: Stable Is patient prescribed a controlled substance at d/c from ED?: No Referrals: Joel Myers MD [Primary Care Provider] - 1-2 days Time of Disposition: 17:46
[2022-09-29 16:41] LABS: Basophils % (A) 0 %; Eosinophils # (A) 0.1 k/uL (0-0.7); Eosinophils % (A) 2 %; HCT 43.7 % (34.0-46.0); HGB 14.5 gm/dL (11.4-16.0); Lymphocytes # (A) 1.6 k/uL (1.0-4.8); Lymphocytes % (A) 18 %; MCH 26.1 pg (25.0-35.0); MCHC 33.1 g/dL (31.0-37.0); MCV 79.1 fL (80.0-100.0); Mean Platelet Volume 7.7; Monocytes # (A) 0.4 k/uL (0-1.0); Monocytes % (A) 5 %; Neutrophils # (A) 6.5 k/uL (1.3-7.7); Neutrophils % (A) 74 %; Platelet Count 312 k/uL (150-450); RBC 5.53 m/uL (3.80-5.40); WBC 8.8 k/uL (3.8-10.6)
--- NOTE | 2022-09-29 16:46 | XR ---
EXAMINATION TYPE: XR chest 2V DATE OF EXAM: 09/29/2022 COMPARISON: 04/19/2021 HISTORY: Shortness of breath TECHNIQUE: Frontal and lateral views of the chest are obtained. FINDINGS: Scattered senescent parenchymal changes noted. Hyperinflation compatible with COPD. No evidence for infiltrate. No evidence for atelectasis. Heart size is stable. Mediastinal structures are stable and grossly unremarkable. No evidence for hilar prominence. Degenerative changes dorsal spine. IMPRESSION: 1. No evidence for acute pulmonary disease.
[2022-09-29 16:53] LABS: ALT 20 U/L (4-34); AST 20 U/L (14-36); African American GFR (CKD) >90 (>60 ml/min/1.73 sqM); Alkaline Phosphatase 116 U/L (38-126); Anion Gap 9 mmol/L; Blood Urea Nitrogen 22 mg/dL (7-17); Carbon Dioxide 31 mmol/L (22-30); Chloride 97 mmol/L (98-107); Glucose 150 mg/dL (74-99); Magnesium 1.9 mg/dL (1.6-2.3); Non-African American GFR(CKD) >90 (>60 ml/min/1.73 sqM); Potassium 3.2 mmol/L (3.5-5.1); Sodium 137 mmol/L (137-145); Total Bilirubin 0.5 mg/dL (0.2-1.3); Total Protein 7.2 g/dL (6.3-8.2)
[2022-09-29 16:59] LABS: Appearance,Urine Clear (Clear); Bacteria,Urine Rare /hpf; Bilirubin,Urine Negative (Negative); Blood,Urine Small (Negative); Color,Urine Yellow; Glucose,Urine (UA) 2+ (Negative); Hyaline Casts,Urine 1 /lpf (0-2); Ketones,Urine Negative (Negative); Leukocyte Esterase,Urine Negative (Negative); Mucus,Urine Occasional /hpf; Nitrite,Urine Negative (Negative); PH, Urine 5.5 (5.0-8.0); Protein,Urine Trace (Negative); RBC,Urine 3 /hpf (0-5); Specific Gravity,Urine 1.028 (1.001-1.035); Squamous Epithelial Cell,Urine 5 /hpf (0-4); Urobilinogen,Urine <2.0 mg/dL (<2.0); WBC,Urine <1 /hpf (0-5)
[2022-09-29 17:00] LABS: Partial Thromboplastin Time 26.4 sec (22.0-30.0); Prothrombin Time 10.4 sec (9.0-12.0)
[2022-09-29] MEDS ORDERED: POTASSIUM CHLORIDE ER 20 MEQ TAB.ER PO STA (17:20)
[2022-09-29] MEDS ORDERED: NALOXONE 0.4 MG/ML 1 ML VIAL IV PRN (17:40)
[2022-09-29] MEDS ORDERED: ACETAMINOPHEN TAB 325 MG TAB PO PRN (17:40)
[2022-09-29] MEDS ORDERED: Potassium Replacement Protocol 1 EACH MISC MISCELLANE PRN (19:43)
[2022-09-29] MEDS: HEPARIN SODIUM,PORCINE/PF 5,000 UNIT/0.5 ML SYRINGE SQ SCH (21:56)
[2022-09-29] MEDS: VERAPAMIL 40 MG TAB PO SCH (21:56)
[2022-09-29] MEDS: LATANOPROST 0.005% OPHTH DROPS 2.5 ML BTL BOTH EYES SCH (21:57)
[2022-09-29] MEDS: FAMOTIDINE 20 MG/2 ML VIAL IV SCH (21:57)
[2022-09-29 22:16] LABS: Glucose,Whole Blood 182 mg/dL (70-110)
[2022-09-29] MEDS ORDERED: DEXTROSE 50% SYRINGE 50 ML IVP PRN ×2 (22:19)
[2022-09-29] MEDS ORDERED: TEMAZEPAM 7.5 MG CAP PO PRN (22:19)
[2022-09-30 06:36] LABS: Glucose,Whole Blood 214 mg/dL (70-110)
[2022-09-30] MEDS: INSULIN ASPART (NovoLOG) 100 UNIT/ML VIAL SQ SCH ×5 (06:39→21:04)
[2022-09-30] MEDS ORDERED: LOSARTAN-HCTZ 50-12.5 MG 1 EACH TAB PO SCH (09:00)
[2022-09-30] MEDS: ASPIRIN 81 MG PO SCH (09:19)
[2022-09-30] MEDS: LEVOTHYROXINE 50 MCG TAB PO SCH (09:19)
[2022-09-30] MEDS: FAMOTIDINE 20 MG/2 ML VIAL IV SCH (09:19)
[2022-09-30] MEDS: METOPROLOL SUCCINATE (ER) 50 MG TAB.ER.24H PO SCH (09:19)
[2022-09-30] MEDS: HEPARIN SODIUM,PORCINE/PF 5,000 UNIT/0.5 ML SYRINGE SQ SCH ×2 (09:19→21:00)
[2022-09-30] MEDS: LEVOTHYROXINE 100 MCG TAB PO SCH (09:20)
[2022-09-30] MEDS: VERAPAMIL 40 MG TAB PO SCH ×3 (09:20→20:59)
[2022-09-30] MEDS: FUROSEMIDE 40 MG TAB PO SCH (09:20)
[2022-09-30] MEDS: SODIUM CHLORIDE 0.9% 1,000 ML IV SCH (09:20)
[2022-09-30 09:31] LABS: BUN/Creat Ratio 21.12 Ratio (12.00-20.00); Blood Urea Nitrogen 16.9 mg/dL (9.0-27.0); Calcium 8.7 mg/dL (8.7-10.3); Chloride 100 mmol/L (96-109); Glucose 231 mg/dL (70-110); Potassium 3.6 mmol/L (3.5-5.5); Sodium 140 mmol/L (135-145)
[2022-09-30] MEDS ORDERED: POTASSIUM CHLORIDE ER 20 MEQ TAB.ER PO STA (11:55)
--- NOTE | 2022-09-30 12:02 | P.CRDCN ---
History of Present Illness Consult date: 09/30/22 Reason for Consult (text): Palpitations History of present illness: This is Sheldon Phelps NP, I'm dictating on behalf of Dr. Pandya's H&P and A&P The patient was interviewed and examined. HPI: Patient is a pleasant 51-year-old female presents to hospital with complaints of palpitations. Patient reports that she's had heart palpitations f or approximately one year. She reports that they come and go with no obvious exacerbating or alleviating factors. Patient has had a three-day monitor previously which did not demonstrate any significant issues. Patient reports that with minimal exertion, she has the palpitations, and gets lightheaded, short of breath, and some dizziness. She presented to the hospital for evaluation. In the emergency department patient had an EKG completed which demonstrated sinus tachycardia with no obvious ectopic beats. Patient does have a first-degree heart block. Troponins were negative. Patient was found to be somewhat hypokalemic. Her potassium was replaced in the emergency department. Patient was subsequently admitted for further evaluation by cardiology. Patient has a pertinent past medical history includes diabetes, hypertension, thyroid disorder, and cancer. She has a past pertinent surgical history that includes vascular laser surgery, and thyroidectomy. This morning the patient reports that she's feeling okay. She is not feeling any palpitations at this time. A repeat EKG is similar to the previous EKG on admission, however the patient is in normal sinus rhythm with no tachycardia at this time. ROS: [No fever, chills, or rigors] [no cough, phlegm, or expectoration] [no nausea, vomiting, or diarrhea] [no hematuria, dysuria] [no musculoskelatal complaints] [no strokes or seizures] [no skin lesions] EXAMINATION: GENERAL: Well-appearing, well-nourished and in no acute distress. NECK: Supple without JVD or thyromegaly. LUNGS: Breath sounds clear to auscultation bilaterally. Respiration equal and unlabored. No wheezes, rales or rhonchi. HEART: Regular rate and rhythm without murmurs, rubs or gallops. S1 and S2 heard. EXTREMITIES: Normal range of motion, no edema. No clubbing or cyanosis. Peripheral pulses intact and strong. REVIEW OF LABS, ECG & MEDICAL DATA: LABS: White count 8.8, hemoglobin 14.5, platelets 312, sodium 140, potassium 3.6, B1 16.9, creatinine 0.8, hemoglobin A1c 10.3, magnesium 2.0 EKG: Normal sinus rhythm with first-degree block IMAGING: Chest x-ray dated 09/29/2022 demonstrates no evidence for acute pulmonary disease. VITALS: Temp 97.9, pulse 78, respirations 16, blood pressure 136/83, O2 saturation 91% on room air IMPRESSION: 1. First-degree heart block 2. Uncontrolled diabetes 3. Hypothyroidism secondary to thyroidectomy PLAN: Check TSH and free T4. Schedule patient for tilt table test tomorrow. Rarely this could be secondary to atrial tachycardia. 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 Refer to endocrinology. Further recommendations based on the results of the tilt table test, and telemetry monitoring. Thank you for the consult and allowing us to participate in the care of this patient. Past Medical History Past Medical History: Cancer, Diabetes Mellitus, Hypertension, Thyroid Disorder Additional Past Medical History / Comment(s): VARICOSE VEINS. EDEMA ANKLES. NO THYROID. HEART PALPITATIONS. ENDOMETRIAL CANCER. History of Any Multi-Drug Resistant Organisms: None Reported Past Surgical History: Hysterectomy Additional Past Surgical History / Comment(s): Vascular Laser Surgery on Rt leg. John wrist ganglion cysts. Breast bx., total thyroidectomy Past Anesthesia/Blood Transfusion Reactions: Postoperative Nausea & Vomiting (PONV) Past Psychological History: No Psychological Hx Reported Additional Psychological History / Comment(s): Very nervous re. surgery Smoking Status: Never smoker Past Alcohol Use History: None Reported Additional Past Alcohol Use History / Comment(s): SMOKED FEW YEARS, QUIT IN HER LATE 20'S. Past Drug Use History: None Reported - Past Family History Mother Family Medical History: Cancer, Deep Vein Thrombosis (DVT) Additional Family Medical History / Comment(s): BREAST CA Brother(s) Family Medical History: Cancer, Deep Vein Thrombosis (DVT) Additional Family Medical History / Comment(s): CA TUMOR OF PITUITARY GLAND Medications and Allergies Home Medications Medication Instructions Recorded Confirmed Type Aspirin EC [Ecotrin Low Dose] 81 mg PO DAILY 12/22/15 09/29/22 History Furosemide [Lasix] 40 mg PO DAILY 09/05/16 09/29/22 History Metoprolol Succinate [Toprol XL] 50 mg PO DAILY 05/30/21 09/29/22 History INSULIN LISPRO (humaLOG) [humaLOG] 1 - 70 units SQ AC-TID PRN 08/14/22 09/29/22 History Dulaglutide [Trulicity] 3 mg SQ ROCK 09/29/22 09/29/22 History Ergocalciferol (Vitamin D2) 1,250 mcg PO ROCK 09/29/22 09/29/22 History [Drisdol (50,000 Iu)] Insulin Glargine,Hum.rec.anlog 1 - 70 units SQ HS 09/29/22 09/29/22 History [Tougabriela Solostar] Latanoprost [Latanoprost 0.005%] 1 drop BOTH EYES HS 09/29/22 09/29/22 History Levothyroxine Sodium [Synthroid] 50 mcg PO DAILY 09/29/22 09/29/22 History Levothyroxine Sodium [Synthroid] 200 mcg PO DAILY 09/29/22 09/29/22 History Losartan/Hydrochlorothiazide 1 tab PO DAILY 09/29/22 09/29/22 History [Losartan-Hctz 100-25 mg Tab] Rosuvastatin [Crestor] 10 mg PO DAILY 09/29/22 09/29/22 History Allergies Allergy/AdvReac Type Severity Reaction Status Date / Time Penicillins AdvReac Nausea & Verified 09/29/22 18:34 Vomiting Physical Exam Vitals: Vital Signs Temp Pulse Pulse Resp BP BP Pulse Ox 09/30/22 07:00 97.9 F 78 16 136/83 91 L 09/30/22 02:05 98.1 F 79 17 129/58 96 09/29/22 22:00 98.1 F 96 17 137/65 98 09/29/22 20:00 17 09/29/22 18:29 102 H 20 149/96 98 09/29/22 17:24 99 20 140/88 94 L 09/29/22 15:48 98.1 F 98 20 181/81 97 Intake and Output 09/29/22 09/30/22 09/30/22 22:59 06:59 14:59 Intake Total 0 Balance 0 Intake: Oral 0 Other: Voiding Method Toilet # Voids 1 2 Weight 152.861 kg Results 09/29/22 16:15 09/30/22 06:09 Cardiac Enzymes 09/29/22 09/29/22 Range/Units 16:15 16:15 AST 20 (14-36) U/L Troponin I <0.012 (0.000-0.034) ng/mL Coagulation 09/29/22 Range/Units 16:15 PT 10.4 (9.0-12.0) sec APTT 26.4 (22.0-30.0) sec CBC 09/29/22 Range/Units 16:15 WBC 8.8 (3.8-10.6) k/uL RBC 5.53 H (3.80-5.40) m/uL Hgb 14.5 (11.4-16.0) gm/dL Hct 43.7 (34.0-46.0) % Plt Count 312 (150-450) k/uL Comprehensive Metabolic Panel 09/29/22 09/30/22 Range/Units 16:15 06:09 Sodium 137 140 (137-145) mmol/L Potassium 3.2 L 3.6 (3.5-5.1) mmol/L Chloride 97 L 100 (98-107) mmol/L Carbon Dioxide 31 H 27.0 (22-30) mmol/L BUN 22 H 16.9 (7-17) mg/dL Creatinine 0.75 0.8 (0.52-1.04) mg/dL Glucose 150 H 231 H (74-99) mg/dL Calcium 9.0 8.7 (8.4-10.2) mg/dL AST 20 (14-36) U/L ALT 20 (4-34) U/L Alkaline Phosphatase 116 (38-126) U/L Total Protein 7.2 (6.3-8.2) g/dL Albumin 4.0 (3.5-5.0) g/dL Current Medications Generic Name Dose Route Start Last Admin Trade Name Freq PRN Reason Stop Dose Admin Acetaminophen 650 mg 09/29/22 17:40 Acetaminophen Tab 325 Mg Tab PO Q6HR PRN Mild Pain or Fever > 100.5 Aspirin 81 mg 09/30/22 09:00 09/30/22 09:19 Aspirin 81 Mg PO 81 mg DAILY HANNAH Administration Dextrose/Water 25 ml 09/29/22 22:19 Dextrose 50% Syringe 50 Ml IVP PER PROTOCOL PRN Hypoglycemia Protocol Dextrose/Water 50 ml 09/29/22 22:19 Dextrose 50% Syringe 50 Ml IVP PER PROTOCOL PRN Hypoglycemia Protocol Ergocalciferol 1,250 mcg 09/30/22 19:41 Ergocalciferol 1,250 Mcg (50,000 Iu) Capsule PO ROCK HANNAH Famotidine 20 mg 09/29/22 21:00 09/30/22 09:19 Famotidine 20 Mg/2 Ml Vial IV 20 mg Q12HR HANNAH Administration Furosemide 40 mg 09/30/22 09:00 09/30/22 09:20 Furosemide 40 Mg Tab PO 40 mg DAILY HANNAH Administration HCTZ/Losartan Potassium 2 each 09/30/22 09:00 09/30/22 09:20 Losartan-Hctz 50-12.5 Mg 1 Each Tab PO 2 each DAILY HANNAH Administration Heparin Sodium (Porcine) 5,000 unit 09/29/22 21:00 09/30/22 09:19 Heparin Sodium,Porcine/Pf 5,000 Unit/0.5 Ml Syringe SQ 5,000 unit Q12HR HANNAH Administration Sodium Chloride 1,000 mls @ 20 mls/hr 09/30/22 08:30 09/30/22 09:20 Saline 0.9% IV Not Given .Q24H HANNAH Insulin Aspart 0 unit 09/30/22 07:30 09/30/22 06:39 Insulin Aspart (Novolog) 100 Unit/Ml Vial SQ 2 unit ACHS HANNAH Administration Protocol Latanoprost 1 drops 09/29/22 21:00 09/29/22 21:57 Latanoprost 0.005% Ophth Drops 2.5 Ml Btl BOTH EYES Not Given HS HANNAH Levothyroxine Sodium 50 mcg 09/30/22 09:00 09/30/22 09:19 Levothyroxine 50 Mcg Tab PO 50 mcg DAILY HANNAH Administration Levothyroxine Sodium 200 mcg 09/30/22 09:00 09/30/22 09:20 Levothyroxine 100 Mcg Tab PO 200 mcg DAILY HANNAH Administration Metoprolol Succinate 50 mg 09/30/22 09:00 09/30/22 09:19 Metoprolol Succinate (Er) 50 Mg Tab.Er.24h PO 50 mg DAILY HANNAH Administration Miscellaneous Information 1 each 09/29/22 19:43 Potassium Replacement Protocol 1 Each Misc MISCELLANE DAILY PRN Per Protocol Protocol Naloxone HCl 0.2 mg 09/29/22 17:40 Naloxone 0.4 Mg/Ml 1 Ml Vial IV Q2M PRN Opioid Reversal Temazepam 7.5 mg 09/29/22 22:19 09/30/22 00:10 Temazepam 7.5 Mg Cap PO 7.5 mg HS PRN Administration Insomnia Verapamil HCl 40 mg 09/29/22 22:00 09/30/22 09:20 Verapamil 40 Mg Tab PO 40 mg TID HANNAH Administration Intake and Output 09/29/22 09/30/22 09/30/22 22:59 06:59 14:59 Intake Total 0 Balance 0 Intake: Oral 0 Other: Voiding Method Toilet # Voids 1 2 Weight 152.861 kg 09/29/22 16:15 09/30/22 06:09
[2022-09-30 12:11] LABS: Glucose,Whole Blood 297 mg/dL (70-110)
--- NOTE | 2022-09-30 12:47 | P.HPIM ---
History of Present Illness This is a pleasant 51 years old female with past medical history of Diabetes Mellitus, Hypertension, hypothyroidism status post total thyroidectomy. PCP is Dr. Myers . 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 Currently she is lying comfortable in bed and she denies any chest pain or dyspnea. No coughing. No dizziness. Currently she does not have palpitation. No lightheadedness. No GI or urinary or neurological symptoms She denies smoking alcohol or illicit drugs Patient thinks both Lasix and hydrochlorothiazide She has stable vitals Unremarkable CBC and INR Potassium went below 3.2, BUN slightly elevated with creatinine normal at 0.7. Glucose 182-214 Liver enzymes not elevated and urine analysis is negative for infection but shows glucosuria EKG showing ectopic atrial rhythm with first-degree AV block, right bundle branch block and left anterior fascicular block Chest x-ray: No acute process. Patient states that she takes losartan-hydrochlorothiazide 1 pill a day. Also she takes long-acting insulin 70 units at night as well as Humalog 70 units with meals 3 times a day. Her hemoglobin A1c is elevated to 10.3% and she was informed. I offered to the patient to start diabetes medication she declines. Recommend patient follow up with her PCP Dr. Myers who will see her tomorrow Review of Systems Review of systems CONSTITUTIONAL: No fever, no malaise, no fatigue. HEENT: No recent visual problems or hearing problems. Denied any sore throat. CARDIOVASCULAR: No orthopnea, PND, no palpitations, no syncope. PULMONARY: No shortness of breath, no cough, no hemoptysis. GASTROINTESTINAL: No diarrhea, no nausea, no vomiting, no abdominal pain. Normoactive bowel sounds. NEUROLOGICAL: No headaches, no weakness, no numbness. HEMATOLOGICAL: Denies any bleeding or petechiae. GENITOURINARY: Denies any burning micturition, frequency, or urgency. MUSCULOSKELETAL/RHEUMATOLOGICAL: Denies any joint pain, swelling, or any muscle pain. ENDOCRINE: Denies any polyuria or polydipsia. Past Medical History Past Medical History: Cancer, Diabetes Mellitus, Hypertension, Thyroid Disorder Additional Past Medical History / Comment(s): VARICOSE VEINS. EDEMA ANKLES. NO THYROID. HEART PALPITATIONS. ENDOMETRIAL CANCER. History of Any Multi-Drug Resistant Organisms: None Reported Past Surgical History: Hysterectomy Additional Past Surgical History / Comment(s): Vascular Laser Surgery on Rt leg. John wrist ganglion cysts. Breast bx., total thyroidectomy Past Anesthesia/Blood Transfusion Reactions: Postoperative Nausea & Vomiting (PONV) Past Psychological History: No Psychological Hx Reported Additional Psychological History / Comment(s): Very nervous re. surgery Smoking Status: Never smoker Past Alcohol Use History: None Reported Additional Past Alcohol Use History / Comment(s): SMOKED FEW YEARS, QUIT IN HER LATE 20S. Past Drug Use History: None Reported - Past Family History Mother Family Medical History: Cancer, Deep Vein Thrombosis (DVT) Additional Family Medical History / Comment(s): BREAST CA Brother(s) Family Medical History: Cancer, Deep Vein Thrombosis (DVT) Additional Family Medical History / Comment(s): CA TUMOR OF PITUITARY GLAND Medications and Allergies Home Medications Medication Instructions Recorded Confirmed Type Aspirin EC [Ecotrin Low Dose] 81 mg PO DAILY 12/22/15 09/29/22 History Furosemide [Lasix] 40 mg PO DAILY 09/05/16 09/29/22 History Metoprolol Succinate [Toprol XL] 50 mg PO DAILY 05/30/21 09/29/22 History INSULIN LISPRO (humaLOG) [humaLOG] 1 - 70 units SQ AC-TID PRN 08/14/22 09/29/22 History Dulaglutide [Trulicity] 3 mg SQ ROCK 09/29/22 09/29/22 History Ergocalciferol (Vitamin D2) 1,250 mcg PO ROCK 09/29/22 09/29/22 History [Drisdol (50,000 Iu)] Insulin Glargine,Hum.rec.anlog 1 - 70 units SQ HS 09/29/22 09/29/22 History [Tin Jalloh] Latanoprost [Latanoprost 0.005%] 1 drop BOTH EYES HS 09/29/22 09/29/22 History Levothyroxine Sodium [Synthroid] 50 mcg PO DAILY 09/29/22 09/29/22 History Levothyroxine Sodium [Synthroid] 200 mcg PO DAILY 09/29/22 09/29/22 History Losartan/Hydrochlorothiazide 1 tab PO DAILY 09/29/22 09/29/22 History [Losartan-Hctz 100-25 mg Tab] Rosuvastatin [Crestor] 10 mg PO DAILY 09/29/22 09/29/22 History Allergies Allergy/AdvReac Type Severity Reaction Status Date / Time Penicillins AdvReac Nausea & Verified 09/29/22 18:34 Vomiting Physical Exam Vitals: Vital Signs Temp Pulse Pulse Resp BP BP Pulse Ox 09/30/22 07:00 97.9 F 78 16 136/83 91 L 09/30/22 02:05 98.1 F 79 17 129/58 96 09/29/22 22:00 98.1 F 96 17 137/65 98 09/29/22 20:00 17 09/29/22 18:29 102 H 20 149/96 98 09/29/22 17:24 99 20 140/88 94 L 09/29/22 15:48 98.1 F 98 20 181/81 97 Intake and Output 09/29/22 09/30/22 09/30/22 22:59 06:59 14:59 Intake Total 0 Balance 0 Intake: Oral 0 Other: Voiding Method Toilet # Voids 1 2 Weight 152.861 kg -GENERAL: The patient is alert and oriented x3, not in any acute distress. Obese HEENT: Pupils are round and equally reacting to light. EOMI. No scleral icterus. No conjunctival pallor. Normocephalic, atraumatic. No pharyngeal erythema. No thyromegaly. CARDIOVASCULAR: S1 and S2 present. No murmurs, rubs, or gallops. PULMONARY: Chest is clear to auscultation, no wheezing , no crackles. ABDOMEN: Soft, nontender, nondistended, normoactive bowel sounds. No palpable organomegaly. MUSCULOSKELETAL: No joint swelling or deformity. EXTREMITIES: No cyanosis, clubbing, or pedal edema. NEUROLOGICAL: Gross neurological examination did not reveal any focal deficits. SKIN: No rashes. no petechiae. Results CBC & Chem 7: 09/29/22 16:15 09/30/22 06:09 Labs: Abnormal Lab Results - Last 24 Hours (Table) 09/29/22 09/29/22 09/29/22 Range/Units 16:15 16:15 16:40 RBC 5.53 H (3.80-5.40) m/uL MCV 79.1 L (80.0-100.0) fL Potassium 3.2 L (3.5-5.1) mmol/L Chloride 97 L (98-107) mmol/L Carbon Dioxide 31 H (22-30) mmol/L BUN 22 H (7-17) mg/dL Glucose 150 H (74-99) mg/dL POC Glucose (mg/dL) (70-110) mg/dL Urine Protein Trace H (Negative) Urine Glucose (UA) 2+ H (Negative) Urine Blood Small H (Negative) Ur Squamous Epith Cells 5 H (0-4) /hpf Urine Bacteria Rare H (None) /hpf Urine Mucus Occasional H (None) /hpf 09/29/22 09/30/22 Range/Units 22:15 06:34 RBC (3.80-5.40) m/uL MCV (80.0-100.0) fL Potassium (3.5-5.1) mmol/L Chloride (98-107) mmol/L Carbon Dioxide (22-30) mmol/L BUN (7-17) mg/dL Glucose (74-99) mg/dL POC Glucose (mg/dL) 182 H 214 H (70-110) mg/dL Urine Protein (Negative) Urine Glucose (UA) (Negative) Urine Blood (Negative) Ur Squamous Epith Cells (0-4) /hpf Urine Bacteria (None) /hpf Urine Mucus (None) /hpf Thrombosis Risk Factor Assmnt - Choose All That Apply Each Factor Represents 1 point: Age 41-60 years, Obesity (BMI >25), Swollen legs (current), Varicose veins Thrombosis Risk Factor Assessment Total Risk Factor Score: 4 Thrombosis Risk Factor Assessment Level: Moderate Risk Assessment and Plan Assessment: Palpitation and dizziness with abnormal EKG showing atrial ectopic rhythm with first-degree elevated block and bifascicular block Diabetes mellitus. With hyperglycemia hypothyroidism status post total thyroidectomy Hypertension Morbid obesity with BMI of 49.8 Plan: Continue with telemetry monitoring Replace electrolytes per protocols Cardiology consult Check orthostatic vitals hold HYDROCHLOROTHIAZIDE 12.5 mg, continue with losartan 50 mg daily Until her hypertensive medication. Blood pressure is currently controlled. (Patient informed and agrees) Keep potassium more than 4 and magnesium more than 2 or equal to it Continue with current dose of insulin and follow-up with Dr. Myers (patient declined to a add new diabetes medication ) Labs and medication were reviewed.. Continue same treatment. Continue with symptomatic treatment. Resume home medication. Monitor labs and vitals. DVT and GI prophylaxis. Further recommendations as per clinical course of the [facility] DVT prophylaxis: Subcutaneous heparin GI Prophylaxis: Pepcid Prognosis is guarded
[2022-09-30 17:32] LABS: Glucose,Whole Blood 353 mg/dL (70-110)
[2022-09-30] MEDS ORDERED: DEXTROSE 50% SYRINGE 50 ML IVP PRN ×2 (17:40)
[2022-09-30] MEDS ORDERED: ERGOCALCIFEROL 1,250 MCG (50,000 IU) CAPSULE PO SCH (19:41)
[2022-09-30 20:35] LABS: Glucose,Whole Blood 291 mg/dL (70-110)
[2022-09-30] MEDS: LATANOPROST 0.005% OPHTH DROPS 2.5 ML BTL BOTH EYES SCH (21:00)
[2022-09-30] MEDS: FAMOTIDINE 20 MG TAB PO SCH (21:00)
[2022-10-01 05:54] LABS: Glucose,Whole Blood 194 mg/dL (70-110)
[2022-10-01] MEDS: INSULIN ASPART (NovoLOG) 100 UNIT/ML VIAL SQ SCH ×2 (06:32→12:42)
[2022-10-01 07:33] VITALS: BP 132/75; PULSE 79; RESP 18; TEMP 97.9
[2022-10-01] MEDS ORDERED: SODIUM CHLORIDE 0.9% 500 ML 500 ML IV ONE (08:03)
[2022-10-01] MEDS ORDERED: LOSARTAN 50 MG TAB PO SCH (09:00)
[2022-10-01] MEDS: VERAPAMIL 40 MG TAB PO SCH (09:15)
[2022-10-01] MEDS: ASPIRIN 81 MG PO SCH (09:15)
[2022-10-01] MEDS: LEVOTHYROXINE 100 MCG TAB PO SCH (09:15)
[2022-10-01] MEDS: FAMOTIDINE 20 MG TAB PO SCH (09:15)
[2022-10-01] MEDS: LEVOTHYROXINE 50 MCG TAB PO SCH (09:15)
[2022-10-01] MEDS: HEPARIN SODIUM,PORCINE/PF 5,000 UNIT/0.5 ML SYRINGE SQ SCH (09:16)
[2022-10-01] MEDS: SODIUM CHLORIDE 0.9% 1,000 ML IV SCH (09:16)
[2022-10-01] MEDS: FUROSEMIDE 40 MG TAB PO SCH (09:16)
[2022-10-01] MEDS: METOPROLOL SUCCINATE (ER) 50 MG TAB.ER.24H PO SCH (09:16)
--- NOTE | 2022-10-01 10:34 | P.PN ---
Subjective Progress Note Date: 10/01/22 This is a 51-year-old female admitted with palpitations, dizziness, abnormal EKG showing atrial topic rhythm with first-degree AV block and multiple other medical issues. Patient is currently off the floor for tilt table test and not seen. Objective - Vital Signs Vital signs: Vital Signs Temp 97.9 F 10/01/22 06:55 Pulse 79 10/01/22 06:55 Resp 18 10/01/22 06:55 BP 132/75 10/01/22 06:55 Pulse Ox 93 L 10/01/22 07:54 FiO2 Intake & Output 09/30/22 10/01/22 10/01/22 18:59 06:59 18:59 Intake Total 118 5 Balance 118 5 Intake: IV 5 Intake, IV Titration 0 Amount Sodium Chloride 0.9% 1, 0 000 ml @ 20 mls/hr IV . Q24H [facility] Rx#:[id number] Oral 118 Other: Voiding Method Toilet # Voids 1 - Labs CBC & Chem 7: 09/29/22 16:15 09/30/22 06:09 Labs: Abnormal Lab Results - Last 24 Hours (Table) 09/30/22 09/30/22 09/30/22 Range/Units 12:10 17:30 20:33 POC Glucose (mg/dL) 297 H 353 H 291 H (70-110) mg/dL 10/01/22 Range/Units 05:53 POC Glucose (mg/dL) 194 H (70-110) mg/dL Assessment and Plan Assessment: Palpitation and dizziness with abnormal EKG showing atrial ectopic rhythm with first-degree elevated block and bifascicular block Diabetes mellitus. With hyperglycemia hypothyroidism status post total thyroidectomy Hypertension Morbid obesity with BMI of 49.8
[2022-10-01 12:15] LABS: Glucose,Whole Blood 202 mg/dL (70-110)
--- NOTE | 2022-10-01 12:33 | P.PN ---
Subjective Progress Note Date: 10/01/22 HPI: Patient is a pleasant 51-year-old female presents to hospital with complaints of palpitations. Patient reports that she's had heart palpitations for approximately one year. She reports that they come and go with no obvious exacerbating or alleviating factors. Patient has had a three-day monitor pr eviously which did not demonstrate any significant issues. Patient reports that with minimal exertion, she has the palpitations, and gets lightheaded, short of breath, and some dizziness. She presented to the hospital for evaluation. In the emergency department patient had an EKG completed which demonstrated sinus tachycardia with no obvious ectopic beats. Patient does have a first-degree heart block. Troponins were negative. Patient was found to be somewhat hypokalemic. Her potassium was replaced in the emergency department. Patient was subsequently admitted for further evaluation by cardiology. Patient has a pertinent past medical history includes diabetes, hypertension, thyroid d isorder, and cancer. She has a past pertinent surgical history that includes vascular laser surgery, and thyroidectomy. This morning the patient reports that she's feeling okay. She is not feeling any palpitations at this time. A repeat EKG is similar to the previous EKG on admission, however the patient is in normal sinus rhythm with no tachycardia at this time. 10/01 Patient underwent tilt table test this morning that found mild dysautonomia with recommendations to see endocrinology. Patient has been seen by Dr. Pandey in the past but she does not want to return there. Recommended the patient follow up with Dr. José. Noted hemoglobin A1c is 10.3. TSH was normal at 0.673. Heart rate is been running in the 70s and 80s, blood pressure 132/75 EXAMINATION: GENERAL: Well-appearing, well-nourished and in no acute distress. NECK: Supple without JVD or thyromegaly. LUNGS: Breath sounds clear to auscultation bilaterally. Respiration equal and unlabored. No wheezes, rales or rhonchi. HEART: Regular rate and rhythm without murmurs, rubs or gallops. S1 and S2 heard. EXTREMITIES: Normal range of motion, no edema. No clubbing or cyanosis. Peripheral pulses intact and strong. REVIEW OF LABS, ECG & MEDICAL DATA: LABS: White count 8.8, hemoglobin 14.5, platelets 312, sodium 140, potassium 3.6, B1 16.9, creatinine 0.8, hemoglobin A1c 10.3, magnesium 2.0 EKG: Normal sinus rhythm with first-degree block IMAGING: Chest x-ray dated 09/29/2022 demonstrates no evidence for acute pu lmonary disease. VITALS: Temp 97.9, pulse 78, respirations 16, blood pressure 136/83, O2 saturation 91% on room air IMPRESSION: 1. First-degree heart block 2. Uncontrolled diabetes 3. Hypothyroidism secondary to thyroidectomy PLAN: Status post tilt table test likely sinus tachycardia due to dysautonomia secondary to uncontrolled diabetes. Refer to endocrinology. Patient is cleared for discharge on current medications and a follow-up in the office in 2 weeks. Impression and plan of care have been directed as dictated by the signing physician. Rosa Elena Mallory nurse practitioner acting as scribe for signing physician. Objective - Vital Signs Vital signs: Vital Signs Temp 97.9 F 10/01/22 06:55 Pulse 79 10/01/22 06:55 Resp 18 10/01/22 06:55 BP 132/75 10/01/22 06:55 Pulse Ox 93 L 10/01/22 07:54 FiO2 Intake & Output 09/30/22 10/01/22 10/01/22 18:59 06:59 18:59 Intake Total 118 5 Balance 118 5 Intake: IV 5 Intake, IV Titration 0 Amount Sodium Chloride 0.9% 1, 0 000 ml @ 20 mls/hr IV . Q24H [facility] Rx#:[id number] Oral 118 Other: Voiding Method Toilet # Voids 1 - Labs CBC & Chem 7: 09/29/22 16:15 09/30/22 06:09 Labs: Abnormal Lab Results - Last 24 Hours (Table) 09/30/22 09/30/22 10/01/22 Range/Units 17:30 20:33 05:53 POC Glucose (mg/dL) 353 H 291 H 194 H (70-110) mg/dL 10/01/22 Range/Units 12:14 POC Glucose (mg/dL) 202 H (70-110) mg/dL
--- NOTE | 2022-10-01 12:59 | P.DS ---
Providers Date of admission: 09/29/22 17:40 Expected date of discharge: 10/01/22 Attending physician: Joel Myers MD Consults: 09/29/22 17:40 Consult Physician Routine Consulting Provider: Judson Pandya Consult Reason/Comments: Palpitations Do you want consulting provider notified?: Already Contacted Primary care physician: Joel Myers MD Hospital Course: Palpitation and dizziness with abnormal EKG reporting first-degree block Diabetes mellitus, hyperglycemic, A1c is 10.3 hypothyroidism status post total thyroidectomy, TSH 0.673 Hypertension Morbid obesity with BMI of 49.8 Hospital course:This is a 51-year-old female admitted with palpitations, dizziness, abnormal EKG showing atrial topic rhythm with first-degree AV block, hyperglycemia and multiple other medical issues. Evaluated by cardiology. Underwent tilt table test reporting mild dysautonomia with recommendations to follow up with endocrinology. Tolerated procedure well. Vital signs stable, heart rate 70s to 80s. Denies chest pain, palpitations or shortness of breath. Cleared by cardiology for discharge. Patient will be discharged home today in a stable condition with guarded prognosis. The impression and plan of care has been dictated as directed. : I performed a history and examination of this patient, discussed the same with the dictator. I agree with the dictator's note ,documented as a scribe. Any additional findings or plans will be noted. Patient Condition at Discharge: Stable Plan - Discharge Summary New Discharge Prescriptions: New Losartan [Cozaar] 50 mg PO DAILY #30 tab Verapamil [Isoptin] 40 mg PO TID #90 tab Famotidine [Pepcid] 20 mg PO BID #0 tab Continue Aspirin EC [Ecotrin Low Dose] 81 mg PO DAILY Furosemide [Lasix] 40 mg PO DAILY Rosuvastatin [Crestor] 10 mg PO DAILY Levothyroxine Sodium [Synthroid] 200 mcg PO DAILY Latanoprost [Latanoprost 0.005%] 1 drop BOTH EYES HS Insulin Glargine,Hum.rec.anlog [Toujeo Solostar] 1 - 70 units SQ HS Dulaglutide [Trulicity] 3 mg SQ ROCK Metoprolol Succinate [Toprol XL] 50 mg PO DAILY INSULIN LISPRO (humaLOG) [humaLOG] 1 - 70 units SQ AC-TID PRN PRN Reason: HIGH BLOOD SUGAR Ergocalciferol (Vitamin D2) [Drisdol (50,000 Iu)] 1,250 mcg PO ROCK Levothyroxine Sodium [Synthroid] 50 mcg PO DAILY Discontinued Losartan/Hydrochlorothiazide [Losartan-Hctz 100-25 mg Tab] 1 tab PO DAILY Discharge Medication List Aspirin EC [Ecotrin Low Dose] 81 mg PO DAILY 12/22/15 [History] Furosemide [Lasix] 40 mg PO DAILY 09/05/16 [History] Metoprolol Succinate [Toprol XL] 50 mg PO DAILY 05/30/21 [History] INSULIN LISPRO (humaLOG) [humaLOG] 1 - 70 units SQ AC-TID PRN 08/14/22 [History] Dulaglutide [Trulicity] 3 mg SQ ROCK 09/29/22 [History] Ergocalciferol (Vitamin D2) [Drisdol (50,000 Iu)] 1,250 mcg PO ROCK 09/29/22 [History] Insulin Glargine,Hum.rec.anlog [Toujeo Solostar] 1 - 70 units SQ HS 09/29/22 [History] Latanoprost [Latanoprost 0.005%] 1 drop BOTH EYES HS 09/29/22 [History] Levothyroxine Sodium [Synthroid] 50 mcg PO DAILY 09/29/22 [History] Levothyroxine Sodium [Synthroid] 200 mcg PO DAILY 09/29/22 [History] Rosuvastatin [Crestor] 10 mg PO DAILY 09/29/22 [History] Famotidine [Pepcid] 20 mg PO BID #0 tab 10/01/22 [Rx] Losartan [Cozaar] 50 mg PO DAILY #30 tab 10/01/22 [Rx] Verapamil [Isoptin] 40 mg PO TID #90 tab 10/01/22 [Rx] Follow up Appointment(s)/Referral(s): Thomas José MD [REFERRING] - 1 Week Joel Myers MD [Primary Care Provider] - 3 Days
--- NOTE | 2022-10-01 19:40 | P.EPPROC ---
- EP Procedure Note Electrophysiology Procedure Note: Diagnosis Patient presented with recurrent palpitations Twelve-lead EKG was consistent with sinus tachycardia Diabetes, type II, hemoglobin A1c elevated bilirubin 9.6 Twelve-lead EKG EKG shows a prolonged IL interval with first-degree AV block of 270 ms Right bundle branch block pattern QRS width 150 ms Tilt table test per protocol Baseline blood pressure 144/75 mmHg baseline 173 beats a minute patient was tilted upright at an angle of 70 per protocol There was an immediate drop in her blood pressure 222/71 mmHg and an increase in the heart rate 96 beats a minute, blood pressure very/the lower down to 116/72 mmHg while a heart rate stayed at around 100 beats a minute No symptoms noted When she was laid supine, heart rate normalized to baseline level while her blood pressure increased 250 was 73 mmHg almost immediately upon return to supine position Impression Abnormal twelve-lead EKG with first-degree AV block right bundle branch block No clear-cut evidence of any SVT through this admission She had mild sinus tachycardia and mildly elevated heart rates mostly in the 90s 200s Tilt table test did not show any evidence for neurocardiogenic syncope There was very mild evidence of orthostatic hypotension syndrome/very mild dysautonomia without any syncope or presyncope Likely early diabetic autonomic neuropathy Suggest Management of type 2 diabetes It is quite likely that her palpitations are secondary to blood pressure fluctuations secondary to diabetic autonomic neuropathy There was an almost immediate increase her heart rate by about 20 have 25 points upon assuming upright position with normalization when she was laid supine
== END 2022-10-01 14:20 | disposition home or self-care (01) ==
LOC: EC 15:41 → 6NMEDSUR 17:40
PROVIDERS: ADMIT Family Medicine; ATTEND Family Medicine
DX: R00.2 Palpitations (principal); R42 Dizziness and giddiness; I44.0 Atrioventricular block, first degree; E89.0 Postprocedural hypothyroidism; E11.65 Type 2 diabetes mellitus with hyperglycemia; I10 Essential (primary) hypertension; G90.1 Familial dysautonomia [Riley-Day]; E66.01 Morbid (severe) obesity due to excess calories; Z68.42 Body mass index [BMI] 45.0-49.9, adult; Z85.42 Personal history of malignant neoplasm of other parts of uterus; Z79.82 Long term (current) use of aspirin; Z79.4 Long term (current) use of insulin; Z79.899 Other long term (current) drug therapy; Z79.890 Hormone replacement therapy; Z79.85 Long-term (current) use of injectable non-insulin antidiabetic drugs; Z88.0 Allergy status to penicillin
CPT/HCPCS: 96372 ×3; 96374; 96376; 99285; 36415; 94760; 93005; 93660; 80053; 80048; 84443; 83735 ×2; 84484; 85025; 85610; 85730; 81001; 83036; 71046; G0378 ×3; J1644 ×3

== ENCOUNTER 2024-01-26 14:12 | Emergency (ER) | payer OTHER ==
--- NOTE | 2024-01-26 15:10 | ED ---
Female Urogenital HPI - General Source: patient Mode of arrival: ambulatory Limitations: no limitations - History of Present Illness MD Complaint: pelvic pain <Tc Gonzalez - Last Filed: 01/26/24 15:08> <Dixie Ferro - Last Filed: 01/26/24 17:00> - General Stated complaint: Urogenital Time Seen by Provider: 01/26/24 14:29 - History of Present Illness Initial comments: Quick note: This is a 53-year-old female presenting with a abscess in her groin. X 7 days. Patient states abscesses been growing larger and more tender since she first noticed it. Patient states she tried popping abscess at home only expressing blood at that time. Patient rates pain at 5 out of 10. Patient endorses history of diabetes. Patient denies urinary symptoms, vaginal bleeding, vaginal discharge, discharge from abscess or any other symptoms. (Tc Gonzalez) This is a 53-year-old female history of diabetes presents emerged part chief complaint of an abscess to her suprapubic region over the past 7 days. States that his been increasing in size and has become more painful. She is attempted to darien the abscess at home with a plan set from her diabetes With drainage of blood. She denies fevers, chills, nausea, vomiting, urinary symptoms. (Dixie Ferro) - Related Data Home Medications Medication Instructions Recorded Confirmed Aspirin EC [Ecotrin Low Dose] 81 mg PO DAILY 12/22/15 09/29/22 Furosemide [Lasix] 40 mg PO DAILY 09/05/16 09/29/22 Metoprolol Succinate [Toprol XL] 50 mg PO DAILY 05/30/21 09/29/22 INSULIN LISPRO (humaLOG) [humaLOG] 1 - 70 units SQ AC-TID PRN 08/14/22 09/29/22 Dulaglutide [Trulicity] 3 mg SQ ROCK 09/29/22 09/29/22 Ergocalciferol (Vitamin D2) 1,250 mcg PO ROCK 09/29/22 09/29/22 [Drisdol (50,000 Iu)] Insulin Glargine,Hum.rec.anlog 1 - 70 units SQ HS 09/29/22 09/29/22 [Tin Jalloh] Latanoprost [Latanoprost 0.005%] 1 drop BOTH EYES HS 09/29/22 09/29/22 Levothyroxine Sodium [Synthroid] 50 mcg PO DAILY 09/29/22 09/29/22 Levothyroxine Sodium [Synthroid] 200 mcg PO DAILY 09/29/22 09/29/22 Rosuvastatin [Crestor] 10 mg PO DAILY 09/29/22 09/29/22 Previous Rx's Medication Instructions Recorded Famotidine [Pepcid] 20 mg PO BID #0 tab 10/01/22 Losartan [Cozaar] 50 mg PO DAILY #30 tab 10/01/22 Verapamil [Isoptin] 40 mg PO TID #90 tab 10/01/22 Sulfamethox-Tmp 800-160Mg [Bactrim 1 each PO Q12HR #20 tab 01/26/24 Ds] Allergies Allergy/AdvReac Type Severity Reaction Status Date / Time Penicillins AdvReac Nausea & Verified 01/26/24 15:14 Vomiting Review of Systems ROS Other: All systems not noted in ROS Statement are negative. <Tc Gonzalez - Last Filed: 01/26/24 15:08> ROS Other: All systems not noted in ROS Statement are negative. <Dixie Ferro - Last Filed: 01/26/24 17:00> ROS Statement: Those systems with pertinent positive or pertinent negative responses have been documented in the HPI. Past Medical History Past Medical History: Cancer, Diabetes Mellitus, Hypertension, Thyroid Disorder Additional Past Medical History / Comment(s): VARICOSE VEINS. EDEMA ANKLES. NO THYROID. HEART PALPITATIONS. ENDOMETRIAL CANCER. History of Any Multi-Drug Resistant Organisms: None Reported Past Surgical History: Hysterectomy Additional Past Surgical History / Comment(s): Vascular Laser Surgery on Rt leg. John wrist ganglion cysts. Breast bx., total thyroidectomy Past Anesthesia/Blood Transfusion Reactions: Postoperative Nausea & Vomiting (PONV) Past Psychological History: No Psychological Hx Reported Additional Psychological History / Comment(s): Very nervous re. surgery Smoking Status: Never smoker Past Alcohol Use History: None Reported Additional Past Alcohol Use History / Comment(s): SMOKED FEW YEARS, QUIT IN HER LATE 20'S. Past Drug Use History: None Reported - Past Family History Mother Family Medical History: Cancer, Deep Vein Thrombosis (DVT) Additional Family Medical History / Comment(s): BREAST CA Brother(s) Family Medical History: Cancer, Deep Vein Thrombosis (DVT) Additional Family Medical History / Comment(s): CA TUMOR OF PITUITARY GLAND <Tc Gonzalez - Last Filed: 01/26/24 15:08> General Exam <Tc Gonzalez - Last Filed: 01/26/24 15:08> General appearance: alert, in no apparent distress Eye exam: Present: normal appearance, PERRL, EOMI. Absent: scleral icterus, conjunctival injection, periorbital swelling ENT exam: Present: normal exam, mucous membranes moist Neck exam: Present: normal inspection. Absent: tenderness, meningismus, lymphadenopathy Respiratory exam: Present: normal lung sounds bilaterally. Absent: respiratory distress, wheezes, rales, rhonchi, stridor Cardiovascular Exam: Present: regular rate, normal rhythm, normal heart sounds. Absent: systolic murmur, diastolic murmur, rubs, gallop, clicks GI/Abdominal exam: Present: soft, normal bowel sounds. Absent: distended, tenderness, guarding, rebound, rigid Extremities exam: Present: normal inspection, full ROM, normal capillary refill. Absent: tenderness, pedal edema, joint swelling, calf tenderness Back exam: Present: normal inspection Skin exam: Present: warm, dry, intact, normal color. Absent: rash Expanded Type of lesion: Present: abscess (suprapubic abscess with erythema, fluctuant aprox 4 cm by 2 cm, no active purulence) <Dixie Ferro - Last Filed: 01/26/24 17:00> - General Exam Comments Initial Comments: Visual Physical Exam Vital signs reviewed General: Well-appearing, nontoxic, no acute distress. Head: Normocephalic, atraumatic Eyes: PERRLA, EOMI ENT: Airway patent Chest: Nonlabored breathing Skin: No visual rash, normal skin tone Neuro: Alert and oriented 3 Musculoskeletal: No gross abnormalities (Tc Gonzalez) Course Vital Signs 01/26/24 01/26/24 15:15 16:13 Temperature 97.5 F L Pulse Rate 71 86 Respiratory 18 18 Rate Blood Pressure 181/99 149/99 O2 Sat by Pulse 98 97 Oximetry Procedures - Incision & Drainage Consent Obtained: verbal consent Site: other (suprapubic) Anesthetic Used: lidocaine 1%, with epi Amount (mLs): 3 I&D Cleaning Method: Chloroprep Scalpel Used: #11 Needle Aspiration Performed?: Yes I&D Drainage Obtained: Pus, Blood Patient Tolerated Procedure: well, no complications <Dixie Ferro - Last Filed: 01/26/24 17:00> Medical Decision Making <Tc Gonzalez - Last Filed: 01/26/24 15:08> <Dixie Ferro - Last Filed: 01/26/24 17:00> - Medical Decision Making I completed the quick note portion of this chart signed JANY Medrano (Tc Gonzalez) Was pt. sent in by a medical professional or institution (, [facility], [facility], urgent care, hospital, or halfway...) When possible be specific @ -No Did you speak to anyone other than the patient for history (EMS, parent, family, police, friend...)? What history was obtained from this source @ -No Did you review nursing and triage notes (agree or disagree)? Why? @ -I reviewed and agree with nursing and triage notes Were old charts reviewed (outside hosp., previous admission, EMS record, old EKG, old radiological studies, urgent care reports/EKG's, halfway records)? Report findings @ -No old charts were reviewed Differential Diagnosis (chest pain, altered mental status, abdominal pain women, abdominal pain men, vaginal bleeding, weakness, fever, dyspnea, syncope, headache, dizziness, GI bleed, back pain, seizure, CVA, palpatations, mental health, musculoskeletal)? @ -abscess EKG interpreted by me (3pts min.). @ -none X-rays interpreted by me (1pt min.). @ -None done CT interpreted by me (1pt min.). @ -None done U/S interpreted by me (1pt. min.). @ -None done What testing was considered but not performed or refused? (CT, X-rays, U/S, labs)? Why? @ -None What meds were considered but not given or refused? Why? @ -None Did you discuss the management of the patient with other professionals (professionals i.e. [facility] Mcduffie, [facility], lab, RT, psych nurse, geriatric social work professor, pipe installer, teacher, ordnance corps officer, nurse case management)? Give summary @ -No Was smoking cessation discussed for >3mins.? @ -No Was critical care preformed (if so, how long)? @ -No Were there social determinants of health that impacted care today? How? (Homelessness, low income, unemployed, alcoholism, drug addiction, transportation, low edu. Level, literacy, decrease access to med. care, [facility], rehab)? @ -No Was there de-escalation of care discussed even if they declined (Discuss DNR or withdrawal of care, Hospice)? DNR status @ -No What co-morbidities impacted this encounter? (DM, HTN, Smoking, COPD, CAD, Cancer, CVA, ARF, Chemo, Hep., AIDS, mental health diagnosis, sleep apnea, morbid obesity)? @ -diabetes Was patient admitted / discharged? Hospital course, mention meds given and route, prescriptions, significant lab abnormalities, going to OR and other pertinent info. @ -Discharge. 53-year-old female with an abscess. Patient was originally evaluated as a quick note the emergency department waiting room. On my evaluation the patient she is resting comfortably no signs acute distress. Her vitals are stable. She is noted to have a suprapubic abscess that measures approximately 4 cm x 2 cm that is fluctuant and erythematous and tender to palpation. There is no signs of active drainage. Area was cleansed with chlorhexidine and a injection of lidocaine with epinephrine was used to anesthetize the area. Open blade scalpel was used to incise with drainage of p urulence and blood. Wound dressing applied over top. Patient sent a prescription for Bactrim and instructed to continue warm compresses at home to continue with drainage of infection. use Tylenol/Motrin at home as needed as well for pain. discussed with Dr. Huffman Undiagnosed new problem with uncertain prognosis? @ -No Drug Therapy requiring intensive monitoring for toxicity (Heparin, Nitro, In sulin, Cardizem)? @ -No Were any procedures done? @ -Incision and drainage, see procedure note for further details Diagnosis/symptom? @ -Abscess Acute, or Chronic, or Acute on Chronic? @ -acute Uncomplicated (without systemic symptoms) or Complicated (systemic symptoms)? @ -uncomplicated Side effects of treatment? @ -No Exacerbation, Progression, or Severe Exacerbation? @ -No Poses a threat to life or bodily function? How? (Chest pain, [place], [place], pneumonia, PE, COPD, DKA, ARF, appy, cholecystitis, CVA, Diverticulitis, Homicidal, Suicidal, threat to staff... and all critical care pts) @ -No (Dixie Ferro) Disposition <Tc Gonzalez - Last Filed: 01/26/24 15:08> Is patient prescribed a controlled substance at d/c from ED?: No Time of Disposition: 15:59 <Dixie Ferro - Last Filed: 01/26/24 17:00> Clinical Impression: Abscess Disposition: HOME SELF-CARE Condition: Good Instructions (If sedation given, give patient instructions): Abscess Incision and Drainage (ED) Additional Instructions: Please return to the Emergency Department if symptoms worsen or any other concerns. Pleat full course of Bactrim as prescribed. Continue warm compresses at home up to 4 times per day to continue draining infection. Prescriptions: Sulfamethox-Tmp 800-160Mg [Bactrim Ds] 1 each PO Q12HR #20 tab Referrals: Joel Myers MD [Primary Care Provider] - 1-2 days
[2024-01-26 15:18] VITALS: RESP 18; TEMP 97.5
[2024-01-26] MEDS: LIDOCAINE 1%-EPI 1:100,000 20 ML VIAL SQ STA (15:39)
[2024-01-26 16:14] VITALS: BP 149/99; PULSE 86
== END 2024-01-26 16:14 | disposition home or self-care (01) ==
LOC: EC 14:12
CPT/HCPCS: 10060; 99283

== ENCOUNTER → 2024-08-01 | Outpatient (CLI) | payer OTHER | END | disposition home or self-care (01) | LOC: RADMRIMAIN 13:16 | PROVIDERS: ATTEND Family Medicine | DX: Z53.9 Procedure and treatment not carried out, unspecified reason (principal) ==